=== PATIENT | female | born 1960 | race Hispanic/Latino ===

== ENCOUNTER 2018-07-20 17:34 | Emergency (ER) | payer BC, SELFPAY ==
[2018-07-20] MEDS ORDERED: ACETAMINOPHEN 500 MG TAB ONE (19:26)
[2018-07-20 19:39] LABS: Absolute Lymphocytes (CBC) 0.9 K/uL (0.7-4.9); Absolute Monocytes 0.6 K/uL (0.1-1.3); Basophils % 0.4 % (0-1.3); Hematocrit 45.1 % (36.0-45.0); Lymphocytes % 11.5 % (15.3-44.8); MCV 89.9 fL (80-100); MPV 7.8 fL (7.6-11.3); Monocytes % 7.7 % (3.3-12.3); RBC Red Blood Cell Count 5.02 M/uL (3.86-4.86)
[2018-07-20] MEDS ORDERED: NA CHLORIDE 0.9% 1,000 ML ONE (20:12)
[2018-07-20 20:16] LABS: ALT/SGPT 48 U/L (12-78); AST/SGOT 55 U/L (15-37); Albumin 3.6 g/dL (3.4-5.0); Alkaline Phosphatase 121 U/L (45-117); Amylase Level 18 U/L (25-115); BUN Blood Urea Nitrogen 6 mg/dL (7-18); Bicarbonate 28 mmol/L (21-32); Bilirubin Direct < 0.1 mg/dL (0-0.2); Bilirubin Total 0.4 mg/dL (0.2-1.0); Glucose Level 328 mg/dL (74-106); Lipase 57 U/L (73-393); Potassium 4.2 mmol/L (3.5-5.1); Protein, Total 7.7 g/dL (6.4-8.2); Sodium Level 130 mmol/L (136-145)
--- NOTE | 2018-07-20 21:58 | RAD REPORT ---
EXAM DESCRIPTION: CTAbdomen Pelvis W Contrast - 07/20/2018 9:46 pm CLINICAL HISTORY: Abdominal pain. IV contrast only;Abd pain COMPARISON: Stone Protocol dated 07/02/2016 TECHNIQUE: Biphasic CT imaging of the abdomen and pelvis was performed with 100 ml non-ionic IV cont rast. All CT scans are performed using dose optimization technique as appropriate and may include automated exposure control or mA/KV adjustment according to patient size. FINDINGS: The lung bases are clear. The liver demonstrates diffuse fatty liver. The spleen, pancreas, adrenal glands and kidneys are with in normal limits. No bowel obstruction, free air, free fluid or abscess. A few mildly prominent small bowel loops are s een in the mid abdomen. The appendix is normal. No evidence of significant lymphadenopathy. No suspicious bony findings. IMPRESSION: A few mildly prominent small bowel loops are present in the mid abdomen compatible with a nonspecific enteritis. Fatty liver.
--- NOTE | 2018-07-20 22:32 | ER ---
Nurse's Notes [facility] Name: Samantha Thomas Age: 57 yrs Sex: Female : 1960 Arrival Date: 07/20/2018 Time: 17:37 Bed 20 Private MD: None, None Diagnosis: Nausea with vomiting, unspecified;Generalized abdominal pain;Hyperglycemia, unspecified Presentation: 07/20 17:46 Presenting complaint: Patient states: Holger lower back pain that radiates to abdomen, ph N/V/D, and body aches, reports that symptoms began Saturday. Transition of care: patient was not received from another setting of care. Onset of symptoms was July 20, 2018. Risk Assessment: Do you want to hurt yourself or someone else? Patient reports no desire to harm self or others. Initial Sepsis Screen: Does the patient meet any 2 criteria? No. Patient's initial sepsis screen is negative. Does the patient have a suspected source of infection? No. Patient's initial sepsis screen is negative. Care prior to arrival: None. 17:46 Method Of Arrival: Ambulatory ph 17:46 Acuity: IHSAN 3 ph Historical: - Allergies: 17:47 No Known Allergies; ph - Home Meds: 17:47 glyburide 5 mg Oral tab 2 tabs 2 times per day for Type 2 Diabetes Mellitus [Active]; ph metformin 850 mg Oral tab 1 tab 3 times per day [Active]; - PMHx: 17:47 Diabetes - IDDM; Hyperlipidemia; Hypertension; ph - PSHx: 17:47 ; ph - Immunization history:: Adult Immunizations up to date. - Social history:: Smoking status: Patient/guardian denies using tobacco. - Ebola Screening: : No symptoms or risks identified at this time. Screenin:38 Abuse screen: Denies threats or abuse. Denies injuries from another. Nutritional lp1 screening: No deficits noted. Tuberculosis screening: No symptoms or risk factors identified. 20:26 Fall Risk None identified. lp1 Assessment: 19:36 General: Appears uncomfortable, Behavior is appropriate for age. Pain: Complains of lp1 pain in abdomen Pain radiates to back Pain currently is 7 out of 10 on a pain scale. Quality of pain is described as aching. Neuro: Level of Consciousness is awake, alert, obeys commands, Oriented to person, place, time, situation. Cardiovascular: Patient's skin is warm and dry. Respiratory: Respiratory effort is even, unlabored, Breath sounds are clear bilaterally. GI: Abdomen is non-distended, Bowel sounds present X 4 quads. Abdomen is tender to palpation X 4 quads. Reports vomiting. : Denies burning with urination. EENT: No signs and/or symptoms were reported regarding the EENT system. Derm: Skin is intact, Skin is dry, Skin is normal, Skin temperature is hot. Musculoskeletal: Circulation, motion, and sensation intact. 20:45 Reassessment: Patient appears in no apparent distress at this time. Patient and/or lp1 family updated on plan of care and expected duration. Pain level reassessed. Patient is alert, oriented x 3, equal unlabored respirations, skin warm/dry/pink. Patient aware of waiting for lab results. 21:37 Reassessment: Patient appears in no apparent distress at this time. Patient and/or lp1 family updated on plan of care and expected duration. Pain level reassessed. Patient is alert, oriented x 3, equal unlabored respirations, skin warm/dry/pink. 22:30 Reassessment: Patient is alert, oriented x 3, equal unlabored respirations, skin lp1 warm/dry/pink. Patient tolerating food; Daughter brought whataburger for patient Patient states feeling better. Vital Signs: 17:47 BP 144 / 86; Pulse 107; Resp 20; Temp 100.9(O); Pulse Ox 96% on R/A; ph 20:00 BP 120 / 62; Pulse 88; Resp 18; Pulse Ox 96% on R/A; lp1 20:50 BP 129 / 69; Pulse 81; Resp 18; Temp 99(O); Pulse Ox 98% on R/A; Pain 3/10; lp1 21:37 BP 132 / 67; Pulse 83; Resp 18; Pulse Ox 96% on R/A; lp1 22:30 BP 112 / 61; Pulse 82; Resp 18; Temp 99.2(O); Pulse Ox 99% on R/A; lp1 ED Course: 17:37 Patient arrived in ED. sb2 17:37 None, None is Private Physician. sb2 17:47 Triage completed. ph 17:47 Arm band placed on. ph 19:06 Kristi Rodriguez FNP-C is PHCP. kb 19:06 Dorian Fields MD is Attending Physician. kb 19:07 Maday Laws, RN is Primary Nurse. lp1 19:36 Inserted saline lock: 20 gauge in right antecubital area, using aseptic technique. lp1 Blood collected. 19:38 Patient has correct armband on for positive identification. Placed in gown. Bed in low lp1 position. Call light in reach. Pulse ox on. NIBP on. 21:[address] via wheelchair. lp1 21:45 CT completed. Patient tolerated procedure well. Patient moved back from CT. kw1 21:46 CT Abd/Pelvis - W/Contrast In Process Unspecified. EDMS 22:49 No provider procedures requiring assistance completed. IV discontinued, No lp1 redness/swelling at site. Pressure dressing applied. Administered Medications: 19:20 Drug: Tylenol 1000 mg Route: PO; lp1 20:51 Follow up: Response: Temperature is decreased lp1 20:00 Drug: NS 0.9% 1000 ml Route: IV; Rate: 1000 ml; Site: right antecubital; lp1 21:30 Follow up: IV Status: Completed infusion; IV Intake: 1000ml lp1 Point of Care Testing: Blood Glucose: 22:07 Blood Glucose: 261 mg/dL; lp1 Ranges: Intake: 21:30 IV: 1000ml; Total: 1000ml. lp1 Outcome: 22:31 Discharge ordered by . kb 22:50 Discharged to home ambulatory, with family. lp1 22:50 Condition: good 22:50 Discharge instructions given to patient, family, Instructed on discharge instructions, follow up and referral plans. medication usage, Demonstrated understanding of instructions, follow-up care, medications, Prescriptions given X 2. 22:51 Patient left the ED. lp1 Signatures: Dispatcher [employer] EDMS Kristi Rodriguez, Maday Odom, RN RN lp1 Lawanda Mcpherson, ISH RN Meenakshi Amezcua kw1 Tonja yL sb2
--- NOTE | 2018-07-20 22:32 | EDPHYS ---
Physician Documentation [facility] Name: Samantha Thomas Age: 57 yrs Sex: Female : 1960 Arrival Date: 07/20/2018 Time: 17:37 Bed 20 Private MD: None, None ED Physician Dorian Fields HPI: 07/20 19:44 This 57 yrs old Female presents to ER via Ambulatory with complaints of kb Nausea/Vomiting, BODY ACHES. 19:45 This 57 yrs old Female presents to ER via Ambulatory with complaints of kb Nausea/Vomiting, BODY ACHES. 19:45 The patient presents with abdominal pain that is diffuse. Onset: The symptoms/episode kb began/occurred 2 day(s) ago. The symptoms do not radiate. Associated signs and symptoms: Pertinent positives: nausea, vomiting, and diarrhea, fever. The symptoms are described as constant. Modifying factors: The symptoms are alleviated by nothing, the symptoms are aggravated by nothing. Severity of pain: At its worst the pain was moderate in the emergency department the pain is unchanged. The patient has not experienced similar symptoms in the past. The patient has not recently seen a physician. Historical: - Allergies: 17:47 No Known Allergies; ph - Home Meds: 17:47 glyburide 5 mg Oral tab 2 tabs 2 times per day for Type 2 Diabetes Mellitus [Active]; ph metformin 850 mg Oral tab 1 tab 3 times per day [Active]; - PMHx: 17:47 Diabetes - IDDM; Hyperlipidemia; Hypertension; ph - PSHx: 17:47 ; ph - Immunization history:: Adult Immunizations up to date. - Social history:: Smoking status: Patient/guardian denies using tobacco. - Ebola Screening: : No symptoms or risks identified at this time. ROS: 19:45 Constitutional: Negative for fever, chills, and weight loss, Cardiovascular: Negative kb for chest pain, palpitations, and edema, Respiratory: Negative for shortness of breath, cough, wheezing, and pleuritic chest pain, : Negative for injury, bleeding, discharge, and swelling, MS/Extremity: Negative for injury and deformity, Skin: Negative for injury, rash, and discoloration, Neuro: Negative for headache, weakness, numbness, tingling, and seizure. 19:45 Abdomen/GI: Positive for abdominal pain, nausea, vomiting, and diarrhea. 19:45 Back: Positive for flank pain, bilaterally. Exam: 19:45 Constitutional: This is a well developed, well nourished patient who is awake, alert, kb and in no acute distress. Head/Face: Normocephalic, atraumatic. Chest/axilla: Normal chest wall appearance and motion. Nontender with no deformity. No lesions are appreciated. Cardiovascular: Regular rate and rhythm with a normal S1 and S2. No gallops, murmurs, or rubs. Normal PMI, no JVD. No pulse deficits. Respiratory: Lungs have equal breath sounds bilaterally, clear to auscultation and percussion. No rales, rhonchi or wheezes noted. No increased work of breathing, no retractions or nasal flaring. Skin: Warm, dry with normal turgor. Normal color with no rashes, no lesions, and no evidence of cellulitis. MS/ Extremity: Pulses equal, no cyanosis. Neurovascular intact. Full, normal range of motion. Neuro: Awake and alert, GCS 15, oriented to person, place, time, and situation. Cranial nerves II-XII grossly intact. Motor strength 5/5 in all extremities. Sensory grossly intact. Cerebellar exam normal. Normal gait. 19:45 Abdomen/GI: Inspection: abdomen appears normal, Bowel sounds: normal, in all quadrants, Palpation: soft, in all quadrants, moderate abdominal tenderness, in all quadrants. 19:45 Back: CVA tenderness, that is mild, is noted bilaterally. Vital Signs: 17:47 BP 144 / 86; Pulse 107; Resp 20; Temp 100.9(O); Pulse Ox 96% on R/A; ph 20:00 BP 120 / 62; Pulse 88; Resp 18; Pulse Ox 96% on R/A; lp1 20:50 BP 129 / 69; Pulse 81; Resp 18; Temp 99(O); Pulse Ox 98% on R/A; Pain 3/10; lp1 21:37 BP 132 / 67; Pulse 83; Resp 18; Pulse Ox 96% on R/A; lp1 22:30 BP 112 / 61; Pulse 82; Resp 18; Temp 99.2(O); Pulse Ox 99% on R/A; lp1 MDM: 19:06 Patient medically screened. [facility] 19:47 Data reviewed: vital signs, nurses notes. Data interpreted: Pulse oximetry: on room air kb is 96 %. Interpretation: normal. 22:30 Counseling: I had a detailed discussion with the patient and/or guardian regarding: the kb historical points, exam findings, and any diagnostic results supporting the discharge/admit diagnosis, lab results, radiology results, the need for outpatient follow up, a family practitioner, to return to the emergency department if symptoms worsen or persist or if there are any questions or concerns that arise at home. 07/20 19:12 Order name: Amylase, Serum; Complete Time: 20:23 kb 07/20 19:12 Order name: Basic Metabolic Panel; Complete Time: 20:23 kb 07/20 19:12 Order name: CBC with Diff; Complete Time: 19:44 kb 07/20 19:12 Order name: Hepatic Function; Complete Time: 20:23 kb 07/20 19:12 Order name: Lipase; Complete Time: 20:23 kb 07/20 22:31 Order name: Urine Dipstick--Ancillary (enter results); Complete Time: 22:45 mt 07/20 19:12 Order name: IV Saline Lock; Complete Time: 19:34 kb 07/20 19:12 Order name: Labs collected and sent; Complete Time: 19:34 kb 07/20 19:12 Order name: Urine Dipstick-Ancillary (obtain specimen); Complete Time: 20:25 kb 07/20 20:25 Order name: CT Abd/Pelvis - W/Contrast; Complete Time: 21:58 fc 07/20 21:59 Order name: Blood Glucose Level; Complete Time: 22:08 kb Administered Medications: 19:20 Drug: Tylenol 1000 mg Route: PO; lp1 20:51 Follow up: Response: Temperature is decreased lp1 20:00 Drug: NS 0.9% 1000 ml Route: IV; Rate: 1000 ml; Site: right antecubital; lp1 21:30 Follow up: IV Status: Completed infusion; IV Intake: 1000ml lp1 Point of Care Testing: Blood Glucose: 22:07 Blood Glucose: 261 mg/dL; lp1 Ranges: Critical Glucose Levels:Adult <50 mg/dl or >400 mg/dl <40 mg/dl or >180 mg/dl Disposition: 07/21 06:49 Co-signature as Attending Physician, Dorian iFelds MD I agree with the assessment and omar plan of care. Disposition: 07/20/18 22:31 Discharged to Home. Impression: Nausea with vomiting, unspecified, Generalized abdominal pain, Hyperglycemia, unspecified. - Condition is Stable. - Discharge Instructions: Viral Gastroenteritis, Adult, [id number]. - Prescriptions for Bentyl 20 mg Oral Tablet - take 1 tablet by ORAL route every 6 hours As needed; 20 tablet. Zofran 4 mg Oral Tablet - take 1 tablet by ORAL route every 6 hours As needed; 20 tablet. - Medication Reconciliation Form, Thank You Letter, Antibiotic Education, Prescription Opioid Use form. - Follow up: Emergency Department; When: As needed; Reason: Worsening of condition. Follow up: Private Physician; When: 2 - 3 days; Reason: Recheck today's complaints, Continuance of care, Re-evaluation by your physician. Signatures: Dispatcher [employer] EDMS Kristi Rodriguez, KILN DOOR BUILDER-C KILN DOOR BUILDER-Dorian Rojo MD MD cha Pena, Laura, RN RN lp1 Lawanda Mcpherson RN RN ph Corrections: (The following items were deleted from the chart) 07/20 22:34 22:31 07/20/2018 22:31 Discharged to Home. Impression: Nausea with vomiting, kb unspecified; Generalized abdominal pain. Condition is Stable. Forms are Medication Reconciliation Form, Thank You Letter, Antibiotic Education, Prescription Opioid Use. Follow up: Emergency Department; When: As needed; Reason: Worsening of condition. Follow up: Private Physician; When: 2 - 3 days; Reason: Recheck today's complaints, Continuance of care, Re-evaluation by your physician. kb 22:51 22:34 07/20/2018 22:31 Discharged to Home. Impression: Nausea with vomiting, lp1 unspecified; Generalized abdominal pain; Hyperglycemia, unspecified. Condition is Stable. Discharge Instructions: Viral Gastroenteritis, Adult, [id number]. Prescriptions for Bentyl 20 mg Oral Tablet - take 1 tablet by ORAL route every 6 hours As needed; 20 tablet, Zofran 4 mg Oral Tablet - take 1 tablet by ORAL route every 6 hours As needed; 20 tablet. and Forms are Medication Reconciliation Form, Thank You Letter, Antibiotic Education, Prescription Opioid Use. Follow up: Emergency Department; When: As needed; Reason: Worsening of condition. Follow up: Private Physician; When: 2 - 3 days; Reason: Recheck today's complaints, Continuance of care, Re-evaluation by your physician. kb
[2018-07-20 22:40] LABS: Urine Blood NEGATIVE (NEG); Urine Glucose 2+ (NEG); Urine Protein TRACE (NEG); Urine Specific Gravity 1.015 (1.005-1.030)
== END 2018-07-20 22:51 | disposition home or self-care (01) ==
LOC: ER 17:34
DX: R11.2 Nausea with vomiting, unspecified (principal); R10.84 Generalized abdominal pain; R73.9 Hyperglycemia, unspecified; E11.65 Type 2 diabetes mellitus with hyperglycemia; Z79.4 Long term (current) use of insulin; I10 Essential (primary) hypertension; E78.5 Hyperlipidemia, unspecified
CPT/HCPCS: 36415; 74177; 80048; 80076; 81003; 82150; 82962; 83690; 85025; 96360; 99284; J7030; Q9967

== ENCOUNTER 2019-06-07 22:36 | Emergency (ER) | payer SELFPAY ==
[2019-06-07 23:32] LABS: Absolute Lymphocytes (CBC) 2.9 K/uL (0.7-4.9); Basophils % 0.5 % (0-1.3); Eosinophils % 1.9 % (0-4.4); Lymphocytes % 40.8 % (15.3-44.8); MPV 8.2 fL (7.6-11.3); Monocytes % 7.6 % (3.3-12.3); RBC Red Blood Cell Count 5.15 M/uL (3.86-4.86)
[2019-06-07] MEDS ORDERED: NA CHLORIDE 0.9% 1,000 ML ONE (23:37)
[2019-06-07] MEDS ORDERED: ACETAMINOPHEN 325 MG TABLET ONE (23:38)
[2019-06-07 23:39] LABS: Protime INR 0.91
[2019-06-07 23:55] LABS: ALT/SGPT 28 U/L (12-78); AST/SGOT 14 U/L (15-37); Albumin 4.4 g/dL (3.4-5.0); Alkaline Phosphatase 190 U/L (45-117); BUN Blood Urea Nitrogen 12 mg/dL (7-18); Bicarbonate 27 mmol/L (21-32); Bilirubin Direct 0.1 mg/dL (0-0.2); Bilirubin Total 0.4 mg/dL (0.2-1.0); Magnesium 2.1 mg/dL (1.8-2.4); NT PRO-BNP 29 pg/mL (<125); Potassium 3.9 mmol/L (3.5-5.1); Protein, Total 8.2 g/dL (6.4-8.2); Sodium Level 130 mmol/L (136-145); Troponin (Emerg Dept Use Only) < 0.02 ng/mL (0.0-0.045)
[2019-06-07 23:56] LABS: Glucose Level 565 mg/dL (74-106)
[2019-06-08] MEDS ORDERED: INSULIN -REGULAR HUMAN 50 UNIT/0.5 ML ML ONE ×2 (00:31→02:05)
[2019-06-08 01:12] LABS: Urine Bacteria <20 /HPF (<20); Urine Culture Reflex Order NOT NEEDED; Urine RBC NONE SEEN /HPF (NONE SEEN)
[2019-06-08 01:23] LABS: Urine Blood NEGATIVE (NEG); Urine Glucose 2+ (NEG); Urine Protein NEGATIVE (NEG)
[2019-06-08] MEDS ORDERED: NA CHLORIDE 0.9% 1,000 ML ONE (02:18)
--- NOTE | 2019-06-08 02:51 | EDPHYS ---
Physician Documentation [facility] Name: Samantha Thomas Age: 58 yrs Sex: Female : 1960 Arrival Date: 06/07/2019 Time: 22:40 Bed 2 Private MD: ED Physician Cesar Arguello HPI: 06/07 23:20 This 58 yrs old Female presents to ER via Ambulatory with complaints of High cp Blood Sugar, Headache. 06/08 23:20 The patient or guardian reports generalized weakness, hyperglycemia, headache. cp 23:20 Onset: The symptoms/episode began/occurred today. Associated signs and symptoms: cp Pertinent negatives: diaphoresis, chest pain, abdominal pain. Current symptoms: In the emergency department the patient's symptoms are unchanged from the initial presentation, despite home interventions. Historical: - Allergies: 06/07 22:52 No Known Allergies; la1 - PMHx: 22:52 Diabetes - IDDM; Hyperlipidemia; Hypertension; la1 - Immunization history:: Adult Immunizations up to date. - Social history:: Smoking status: Patient/guardian denies using tobacco. - Ebola Screening: : No symptoms or risks identified at this time. ROS: 23:20 Constitutional: Negative for body aches, chills, fever, poor PO intake. cp 23:20 Eyes: Negative for injury, pain, redness, and discharge. cp 23:20 Cardiovascular: Negative for chest pain, edema, palpitations. cp 23:20 ENT: Negative for drainage from ear(s), ear pain, sore throat, difficulty swallowing, cp difficulty handling secretions. 23:20 Respiratory: Negative for cough, shortness of breath, wheezing. 23:20 Abdomen/GI: Negative for abdominal pain, nausea, vomiting, and diarrhea, constipation, black/tarry stool, rectal bleeding. 23:20 Back: Negative for pain at rest, pain with movement. 23:20 : Negative for urinary symptoms. 23:20 Neuro: Positive for headache, weakness, Negative for altered mental status, dizziness, numbness, tremor. 23:20 All other systems are negative. Exam: 23:40 ECG was reviewed by the Attending Physician. cp 23:43 Constitutional: The patient appears in no acute distress, alert, awake, cp non-diaphoretic, non-toxic, well developed, well nourished. 23:43 Head/Face: Normocephalic, atraumatic. cp 23:43 Eyes: Periorbital structures: appear normal, Pupils: equal, round, and reactive to light and accomodation, Extraocular movements: intact throughout, Conjunctiva: normal, no exudate, no injection, Sclera: no appreciated abnormality, Lids and lashes: appear normal, bilaterally. 23:43 ENT: External ear(s): are unremarkable, Ear canal(s): are normal, clear, TM's: dullness, bilaterally, Nose: is normal, Mouth: Lips: moist, Oral mucosa: pink and intact, moist, Posterior pharynx: is normal, airway is patent, no erythema, no exudate. 23:43 Neck: ROM/movement: is normal, is supple, without pain, no range of motions limitations, no meningismus, no nuchal rigidity. 23:43 Chest/axilla: Inspection: normal, Palpation: is normal, no crepitus, no tenderness. 23:43 Cardiovascular: Rate: normal, Rhythm: regular, Pulses: Pulses are 2+ in right radial artery and left radial artery. Heart sounds: murmur, not appreciated, Edema: is not appreciated, JVD: is not appreciated. 23:43 Respiratory: the patient does not display signs of respiratory distress, Respirations: normal, no use of accessory muscles, no retractions, no splinting, no tachypnea, labored breathing, is not present, Breath sounds: are clear throughout, no decreased breath sounds, no stridor, no wheezing. 23:43 Abdomen/GI: Inspection: abdomen appears normal, Bowel sounds: active, all quadrants, Palpation: abdomen is soft and non-tender, in all quadrants, voluntary guarding, is not appreciated, involuntary guarding, is not appreciated. 23:43 Back: pain, is absent, ROM is normal. 23:43 Skin: no rash present. 23:43 Neuro: Orientation: to person, place \T\ time. Mentation: is normal, Cerebellar function: Romberg testing is negative, normal finger to nose testing, heel to stinson testing is normal, Motor: moves all fours, strength is normal, Sensation: no obvious gross deficits. Vital Signs: 22:52 BP 166 / 70; Pulse 82; Resp 16; Temp 98.0; Pulse Ox 98% on R/A; Weight 63.5 kg; Height la1 5 ft. 0 in. (152.40 cm); 23:38 BP 148 / 79; Pulse 73; Resp 16; Pulse Ox 98% on R/A; Pain 6/10; lp1 06/08 01:00 BP 120 / 71; Pulse 86; Resp 16; Pulse Ox 100% on R/A; lp1 02:15 BP 115 / 71; Pulse 65; Resp 18; Pulse Ox 99% on R/A; lp1 06/07 22:52 Body Mass Index 27.34 (63.50 kg, 152.40 cm) la1 NIH Stroke Scale Scores: 06/07 23:23 NIHSS Score: 0 cp MDM: 23:14 Patient medically screened. cp 06/08 00:00 Differential diagnosis: DKA, hyperglycemia, hyperthyroidism, hypothyroidism, CVA, acute cp AR. 02:48 Data reviewed: vital signs, nurses notes, lab test result(s), EKG, radiologic studies, cp CT scan, and as a result, I will discharge patient. 02:48 Counseling: I had a detailed discussion with the patient and/or guardian regarding: the cp historical points, exam findings, and any diagnostic results supporting the discharge/admit diagnosis, lab results, radiology results, the need for outpatient follow up, for definitive care, a family practitioner, to return to the emergency department if symptoms worsen or persist or if there are any questions or concerns that arise at home. Response to treatment: the patient's symptoms have markedly improved after treatment, VSS. Blood glucose improved. Patient reports feeling better. Will discharge to home for continued monitoring. Patient instructed on need for urgent f/u with family physician. 06/07 23:01 Order name: Glucose, Ancillary Testing; Complete Time: 23:04 EDMS 06/07 23:16 Order name: Basic Metabolic Panel cp 06/07 23:16 Order name: CBC with Diff cp 06/07 23:16 Order name: LFT's cp 06/07 23:16 Order name: Magnesium cp 06/07 23:16 Order name: NT PRO-BNP; Complete Time: 00:55 cp 06/07 23:16 Order name: PT-INR; Complete Time: 23:51 cp 06/07 23:16 Order name: Troponin (emerg Dept Use Only); Complete Time: 00:55 cp 06/07 23:16 Order name: Ketone, Serum; Complete Time: 00:55 cp 06/07 23:16 Order name: Urine Microscopic Only; Complete Time: 01:50 cp 06/07 23:17 Order name: Basic Metabolic Panel; Complete Time: 00:55 EDMS 06/08 00:55 Interpretation: NA 130; CL 93; GLUC 565; GFR 68. cp 06/07 23:17 Order name: CBC with Automated Diff; Complete Time: 23:51 EDMS 06/08 01:51 Interpretation: Normal except: RBC 5.15; HGB 15.7; HCT 46.0. cp 06/07 23:17 Order name: Liver (Hepatic) Function; Complete Time: 00:55 EDMS 06/07 23:17 Order name: Magnesium; Complete Time: 00:55 EDMS 06/07 23:16 Order name: EKG; Complete Time: 23:18 cp 06/07 23:16 Order name: Cardiac monitoring; Complete Time: 23:38 cp 06/07 23:16 Order name: EKG - Nurse/Tech; Complete Time: 23:37 cp 06/07 23:16 Order name: IV Saline Lock; Complete Time: 23:17 cp 06/07 23:16 Order name: Labs collected and sent; Complete Time: 23:17 cp 06/07 23:16 Order name: O2 Per Protocol; Complete Time: 23:18 cp 06/07 23:16 Order name: O2 Sat Monitoring; Complete Time: 23:19 cp 06/07 23:16 Order name: Urine Dipstick-Ancillary (obtain specimen); Complete Time: 01:00 cp 06/07 23:52 Order name: CT Head Brain wo Cont 06/08 00:59 Order name: Urine Dipstick--Ancillary (enter results); Complete Time: 01:50 ga 06/08 01:50 Interpretation: Abnormal: UGLUC 2+. cp EC/14 23:40 Rate is 76 beats/min. Rhythm is regular. AR interval is normal. QRS interval is normal. cp QT interval is prolonged at 438 msec. Interpreted by me. Reviewed by me. Administered Medications: 23:26 Drug: Tylenol 650 mg Route: PO; 1 06/08 01:00 Follow up: Response: No adverse reaction [facility] 06/07 23:26 Drug: NS 0.9% 1000 ml Route: IV; Rate: 1 bolus; Site: left antecubital; lp1 06/08 01:14 Follow up: IV Status: Completed infusion; IV Intake: 1000ml lp1 00:20 Drug: Insulin Regular Human 10 units {Co-Signature: lp1 (Maday Laws RN).} Route: IVP; jd3 Site: left antecubital; 01:13 Follow up: Response: Blood sugar is lowered lp1 01:52 Drug: Insulin Regular Human 10 units {Co-Signature: jd3 (Pedro Womack RN).} Route: lp1 IVP; Site: left antecubital; 02:35 Follow up: Response: Blood sugar is lowered lp1 02:05 Drug: NS 0.9% 1000 ml Route: IV; Rate: 1 bolus; Site: left antecubital; lp1 02:58 Follow up: IV Status: Completed infusion; IV Intake: 1000ml lp1 Point of Care Testing: Blood Glucose: 06/07 23:00 Blood Glucose: High (>450 mg/dL); oe 06/08 01:13 Blood Glucose: 302 mg/dL; lp1 02:34 Blood Glucose: 214 mg/dL; lp1 Ranges: Critical Glucose Levels:Adult <50 mg/dl or >400 mg/dl <40 mg/dl or >180 mg/dl Disposition: 06:17 Co-signature as Attending Physician, Cesar Arguello MD Available for consultation at ps1 all times. . Disposition: 06/08/19 02:50 Discharged to Home. Impression: Diabetes mellitus due to underlying condition with hyperglycemia, Headache. - Condition is Stable. - Discharge Instructions: Type 2 Diabetes Mellitus, Diagnosis, Adult, Blood Glucose Monitoring, Adult, Diabetes Mellitus and Food. - Prescriptions for Metformin 1,000 mg Oral Tablet - take 1 tablet by ORAL route every 12 hours with morning and evening meals; 60 tablet. - Medication Reconciliation Form, Thank You Letter, Antibiotic Education, Prescription Opioid Use form. - Follow up: Private Physician; When: Today; Reason: Recheck today's complaints. - Problem is new. - Symptoms have improved. NIH Stroke Scale - NIH Stroke Score Date: 06/07/2019 Time: 23:23 Total Score = 0 1a. Level of Consciousness (LOC) - 0(Alert) 1b. Level of Consciousness (LOC) (Year \T\ Age) - 0(Both) 1c. LOC Commands (Open \T\ Closes Eyes/Gas Charger) - 0(Both) 2. Best Gaze (Lateral Gaze Paresis) - 0(Normal) 3. Visual Field Loss - 0(No visual loss) 4. Facial Palsy - 0(Normal) 5a. Left Arm: Motor (10-second hold) - 0(No drift) 5b. Right Arm: Motor (10-second hold) - 0(No drift) 6a. Left Leg: Motor (5-second hold - always test supine) - 0(No drift) 6b. Right Leg: Motor (5-second hold - always test supine) - 0(No drift) 7. Limb Ataxia (finger/nose \T\ heel/stinson - test with eyes open) - 0(Absent) 8. Sensory Loss (pinprick arms/legs/face) - 0(Normal) 9. Best Language: Aphasia (description/naming/reading) - 0(No aphasia) 10. Dysarthria (speech clarity - read or repeat words) - 0(Normal) 11. Extinction and Inattention (visual/tactile/auditory/spatial/personal) - 0(No abnormality) Initials: cp Signatures: Dispatcher [employer] EDMS Maday Laws RN RN lp1 Uday Lindo RN RN la1 Dorian Anderson PA PA cp Pedro Womack RN RN jd3 Cesar Arguello MD MD ps1 Maday Laws RN lp1 Pedro Womack RN jd3 Corrections: (The following items were deleted from the chart) 02:59 02:50 06/08/2019 02:50 Discharged to Home. Impression: Diabetes mellitus due to lp1 underlying condition with hyperglycemia; Headache. Condition is Stable. Forms are Medication Reconciliation Form, Thank You Letter, Antibiotic Education, Prescription Opioid Use. Follow up: Private Physician; When: Today; Reason: Recheck today's complaints. Problem is new. Symptoms have improved. cp
--- NOTE | 2019-06-08 02:51 | ER ---
Nurse's Notes [facility] Name: Samantha Thomas Age: 58 yrs Sex: Female : 1960 Arrival Date: 06/07/2019 Time: 22:40 Bed 2 Private MD: Diagnosis: Diabetes mellitus due to underlying condition with hyperglycemia;Headache Presentation: 06/07 22:51 Presenting complaint: Patient states: My BGL is really high at home like in the 580s. I la1 have a bad headache, denies abd pain, nausea, vomiting. Transition of care: patient was not received from another setting of care. Onset of symptoms was June 07, 2019. Risk Assessment: Do you want to hurt yourself or someone else? Patient reports no desire to harm self or others. Initial Sepsis Screen: Does the patient meet any 2 criteria? No. Patient's initial sepsis screen is negative. Does the patient have a suspected source of infection? No. Patient's initial sepsis screen is negative. Care prior to arrival: None. 22:51 Method Of Arrival: Ambulatory la1 22:51 Acuity: IHSAN 2 la1 Triage Assessment: 23:40 Headache History: The patient has had previous headaches. lp1 Historical: - Allergies: 22:52 No Known Allergies; la1 - PMHx: 22:52 Diabetes - IDDM; Hyperlipidemia; Hypertension; la1 - Immunization history:: Adult Immunizations up to date. - Social history:: Smoking status: Patient/guardian denies using tobacco. - Ebola Screening: : No symptoms or risks identified at this time. Screenin:01 Abuse screen: Denies threats or abuse. Denies injuries from another. Nutritional lp1 screening: No deficits noted. Tuberculosis screening: No symptoms or risk factors identified. 23:40 Fall Risk None identified. lp1 Assessment: 23:15 General: Appears in no apparent distress. Behavior is calm, cooperative, appropriate lp1 for age, Reports high blood sugars for the past couple months, but became concerned when blood sugar was getting close to 600. Pain: Complains of pain in head Pain currently is 6 out of 10 on a pain scale. Pain began gradually, Also complains of inability to concentrate. Neuro: Level of Consciousness is awake, alert, obeys commands, Oriented to person, place, time, situation, Financial Data Analyst are equal bilaterally Moves all extremities. Full function Gait is steady, Speech is normal, Facial symmetry appears normal, Intact Reports headache in entire generalized weakness. Cardiovascular: Patient's skin is warm and dry. Rhythm is sinus rhythm. Respiratory: Respiratory effort is even, unlabored. GI: No signs and/or symptoms were reported involving the gastrointestinal system. : No signs and/or symptoms were reported regarding the genitourinary system. EENT: No signs and/or symptoms were reported regarding the EENT system. Derm: Skin is pink, warm \T\ dry. Musculoskeletal: Circulation, motion, and sensation intact. 06/08 00:40 Reassessment: Patient returned from CT. lp1 01:45 Reassessment: Patient is alert, oriented x 3, equal unlabored respirations, skin lp1 warm/dry/pink. Patient states headache completely gone at this time Patient denies pain at this time. Patient states feeling better. Patient states symptoms have improved. 02:35 Reassessment: Patient appears in no apparent distress at this time. No changes from lp1 previously documented assessment. Vital Signs: 06/07 22:52 BP 166 / 70; Pulse 82; Resp 16; Temp 98.0; Pulse Ox 98% on R/A; Weight 63.5 kg; Height la1 5 ft. 0 in. (152.40 cm); 23:38 BP 148 / 79; Pulse 73; Resp 16; Pulse Ox 98% on R/A; Pain 6/10; lp1 06/08 01:00 BP 120 / 71; Pulse 86; Resp 16; Pulse Ox 100% on R/A; lp1 02:15 BP 115 / 71; Pulse 65; Resp 18; Pulse Ox 99% on R/A; lp1 06/07 22:52 Body Mass Index 27.34 (63.50 kg, 152.40 cm) la1 NIH Stroke Scale Scores: 06/07 23:23 NIHSS Score: 0 cp ED Course: 22:40 Patient arrived in ED. mr 22:52 Triage completed. la1 22:53 Arm band placed on left wrist. la1 23:00 Maday Laws, [facility] is Primary Nurse. lp1 23:04 Dorian Anderson PA is PHCP. cp 23:04 Cesar Arguello MD is Attending Physician. cp 23:11 Inserted saline lock: 20 gauge in left antecubital area, using aseptic technique. Blood oe collected. 23:40 Patient has correct armband on for positive identification. Placed in gown. Bed in low lp1 position. Call light in reach. hall monitor on. Pulse ox on. NIBP on. 06/08 00:37 CT Head Brain wo Cont In Process Unspecified. EDMS 01:00 Urine Microscopic Only Sent. oe 01:13 No provider procedures requiring assistance completed. lp1 02:58 IV discontinued, No redness/swelling at site. Pressure dressing applied. lp1 Administered Medications: 06/07 23:26 Drug: Tylenol 650 mg Route: PO; lp1 06/08 01:00 Follow up: Response: No adverse reaction lp1 06/07 23:26 Drug: NS 0.9% 1000 ml Route: IV; Rate: 1 bolus; Site: left antecubital; lp1 06/08 01:14 Follow up: IV Status: Completed infusion; IV Intake: 1000ml lp1 00:20 Drug: Insulin Regular Human 10 units {Co-Signature: lp1 (Maday Laws RN).} Route: IVP; jd3 Site: left antecubital; 01:13 Follow up: Response: Blood sugar is lowered lp1 01:52 Drug: Insulin Regular Human 10 units {Co-Signature: jd3 (Pedro Womack RN).} Route: lp1 IVP; Site: left antecubital; 02:35 Follow up: Response: Blood sugar is lowered lp1 02:05 Drug: NS 0.9% 1000 ml Route: IV; Rate: 1 bolus; Site: left antecubital; lp1 02:58 Follow up: IV Status: Completed infusion; IV Intake: 1000ml lp1 Point of Care Testing: Blood Glucose: 06/07 23:00 Blood Glucose: High (>450 mg/dL); oe 06/08 01:13 Blood Glucose: 302 mg/dL; lp1 02:34 Blood Glucose: 214 mg/dL; lp1 Ranges: Intake: 01:14 IV: 1000ml; Total: 1000ml. lp1 02:58 IV: 1000ml; Total: 2000ml. lp1 Outcome: 02:50 Discharge ordered by MD. cp 02:59 Discharged to home ambulatory, with family. lp1 02:59 Condition: good 02:59 Discharge instructions given to patient, family, Instructed on discharge instructions, follow up and referral plans. medication usage, Demonstrated understanding of instructions, follow-up care, medications, Prescriptions given X 1. 02:59 Patient left the ED. lp1 NIH Stroke Scale - NIH Stroke Score Date: 06/07/2019 Time: 23:23 Total Score = 0 1a. Level of Consciousness (LOC) - 0(Alert) 1b. Level of Consciousness (LOC) (Year \T\ Age) - 0(Both) 1c. LOC Commands (Open \T\ Closes Eyes/Ground Support Equipment Fitter) - 0(Both) 2. Best Gaze (Lateral Gaze Paresis) - 0(Normal) 3. Visual Field Loss - 0(No visual loss) 4. Facial Palsy - 0(Normal) 5a. Left Arm: Motor (10-second hold) - 0(No drift) 5b. Right Arm: Motor (10-second hold) - 0(No drift) 6a. Left Leg: Motor (5-second hold - always test supine) - 0(No drift) 6b. Right Leg: Motor (5-second hold - always test supine) - 0(No drift) 7. Limb Ataxia (finger/nose \T\ heel/stinson - test with eyes open) - 0(Absent) 8. Sensory Loss (pinprick arms/legs/face) - 0(Normal) 9. Best Language: Aphasia (description/naming/reading) - 0(No aphasia) 10. Dysarthria (speech clarity - read or repeat words) - 0(Normal) 11. Extinction and Inattention (visual/tactile/auditory/spatial/personal) - 0(No abnormality) Initials: cp Signatures: Dispatcher [employer] EDNV Tram Bowers mr Maday Laws RN RN lp1 Uday Lindo RN RN la1 Dorian Anderson PA PA cp Dae Sanchez Jonathon, RN RN jd3 Maday Laws RN lp1 Pedro Womack RN jd3 Corrections: (The following items were deleted from the chart) :06/07 23:15 Pain: Complains of pain in head Pain currently is 6 out of 10 on a lp1 pain scale. lp1 06/08 01:08 06/07 23:15 Neuro: Level of Consciousness is awake, alert, obeys commands, lp1 Oriented to person, place, time, situation, Financial Data Analyst are equal bilaterally Moves all extremities. Full function Gait is steady, Speech is normal, Facial symmetry appears normal, Intact Reports headache in entire generalized weakness. lp1 06/08 02:39 06/07 23:15 Pain: Complains of pain in head Pain currently is 6 out of 10 on a lp1 pain scale. Also complains of inability to concentrate, lp1
--- NOTE | 2019-06-08 10:53 | EKG ---
Test Date: 2019-06-07 Test Time: 23:34:18 Crew Supervisor: ACOSTA MEASUREMENT RESULTS: Intervals: Rate: 76 DC: 118 QRSD: 84 QT: 438 QTc: 492 [place]: P: 17 DC: 118 QRS: 68 T: 59 INTERPRETIVE STATEMENTS: Normal sinus rhythm Prolonged QT Abnormal ECG Compared to ECG 02/24/2017 15:51:24 Prolonged QT interval now present T-wave abnormality no longer present Electronically Signed On 06-08-19 10:52:23 CDT by Cornelio Brown
--- NOTE | 2019-06-08 11:06 | RAD REPORT ---
EXAM DESCRIPTION: Head Brain Wo Cont CLINICAL HISTORY: 58 years Female HEADACHE TECHNIQUE: Contiguous axial CT images obtained through the brain without IV contrast. Coronal and sa gittal reformats also provided. This CT exam was performed according to our departmental dose-optimization program, which includes on e or more of the following dose reduction techniques: automated exposure control, adjustment of the m A and/or kV according to patient size, and/or use of iterative reconstruction technique. COMPARISON: Comparison is made to the prior examination dated 02/24/2017. FINDINGS: There is no intracranial hemorrhage, extraaxial collection, or acute transcortical infarct ion. The ventricles are normal in size and contour without mass-effect or midline shift. Osseous structure s are normal. The paranasal sinuses and mastoid air cells are clear. IMPRESSION: No acute intracranial abnormalities. Electronically signed by: Lina Garcia MD 06/08/2019 12:43 AM CDT Due to temporary technical issues with the PACS/Fluency reporting system, reports are being signed by the in house radiologist as a courtesy to ensure prompt reporting. The interpreting radiologist is f ully responsible for the content of the report.
== END 2019-06-08 02:59 | disposition home or self-care (01) ==
LOC: ER 22:36
DX: E11.65 Type 2 diabetes mellitus with hyperglycemia (principal); I10 Essential (primary) hypertension
CPT/HCPCS: 36415; 70450; 80048; 80076; 81003; 81015; 82010; 82962; 83735; 83880; 84484; 85025; 85610; 93005; 96361; 96374; 99284; J7030

== ENCOUNTER 2022-08-03 13:37 | Emergency (ER) | payer SELFPAY ==
--- OUTSIDE RECORDS SUMMARY | 2022-08-03 14:03 | XMS REPORT | Continuity of Care Document ---
:1960 Author Organization [facility] t Address [address] [place] [address] Dr. Del Angel [address] [place] [id number] Care Team Providers Name Role Phone Karen Thomson Primary Care Physician [phone] Problems This patient has no known problems. Allergies, Adverse Reactions, Alerts This patient has no known allergies or adverse reactions. Medications Ordered Filled Start Stop Current Ordering Indication Dosage Frequency Signature Comments Components Source Medication Medication Date Date Medication? Clinician (SIG) Name Name Levemir 0 No (3 mL) FlexTouch 7-16 U-100 00:00: Insulin 100 00 unit/mL (3 mL) subcutaneou s pen Novolin R 2021-0 No 10(3 Flexpen 100 7-16 mL) unit/mL (3 00:00: mL) 00 subcutaneou s insulin pen Januvia 100 2021-0 No 1mg mg tablet 7-16 00:00: 00 metformin 2021-0 No 1mg 850 mg 7-16 tablet 00:00: 00 pravastatin 2021-0 No 1mg 80 mg 7-16 tablet 00:00: 00 ramipril 10 2021-0 No 1mg mg capsule 7-16 00:00: 00 Dose 2021-0 No Unknown 5-09 00:00: 00 Dose 2-0 No Unknown 5-09 00:00: 00 Dose 2-0 No Unknown 5-09 00:00: 00 Dose 2-0 No Unknown 5-09 00:00: 00 Dose 2021-0 No Unknown 5-09 00:00: 00 Dose 2-0 No Unknown 5-09 00:00: 00 Dose 2-0 No Unknown 3-30 00:00: 00 Dose 2021-0 No Unknown 3-30 00:00: 00 Januvia 100 2022-0 No 1mg mg tablet 3-29 00:00: 00 Dose 2022-0 No Unknown 3-29 00:00: 00 Dose 2022-0 No Unknown 3-29 00:00: 00 Dose 2022-0 No Unknown 3-29 00:00: 00 Januvia 100 2022-0 No 1mg mg tablet 3-29 00:00: 00 Dose 2022-0 No Unknown 3-29 00:00: 00 Dose 2022-0 No Unknown 3-29 00:00: 00 Dose 2022-0 No Unknown 3-29 00:00: 00 Dose 2022-0 No Unknown 3-17 00:00: 00 Dose 2022-0 No Unknown 3-17 00:00: 00 Dose 2022-0 No Unknown 3-17 00:00: 00 Dose 2022-0 No Unknown 3-17 00:00: 00 Dose 2022-0 No Unknown 3-17 00:00: 00 Dose 2022-0 No Unknown 3-17 00:00: 00 Dose 2022-0 No Unknown 3-17 00:00: 00 Dose 2022-0 No Unknown 3-17 00:00: 00 Dose 2022-0 No Unknown 3-17 00:00: 00 Dose 2022-0 No Unknown 3-17 00:00: 00 Dose 2022-0 No Unknown 3-17 00:00: 00 Dose 2022-0 No Unknown 3-17 00:00: 00 Dose 2022-0 No Unknown 3-17 00:00: 00 Dose 2022-0 No Unknown 3-17 00:00: 00 Dose 2022-0 No Unknown 3-17 00:00: 00 Dose 2022-0 No Unknown 3-17 00:00: 00 Dose 2022-0 No Unknown 3-17 00:00: 00 Dose 2022-0 No Unknown 3-17 00:00: 00 Dose 2022-0 No Unknown 3-17 00:00: 00 Dose 2022-0 No Unknown 3-17 00:00: 00 Dose 2022-0 No Unknown 3-17 00:00: 00 Dose 2022-0 No Unknown 3-17 00:00: 00 Dose 2022-0 No Unknown 3-17 00:00: 00 Dose 2022-0 No Unknown 3-17 00:00: 00 Dose 2022-0 No Unknown 3-17 00:00: 00 Dose 2022-0 No Unknown 3-17 00:00: 00 Dose 2022-0 No Unknown 3-17 00:00: 00 Dose 2022-0 No Unknown 3-17 00:00: 00 Dose 2022-0 No Unknown 3-17 00:00: 00 Dose 2022-0 No Unknown 3-17 00:00: 00 Dose 2022-0 No Unknown 3-17 00:00: 00 Dose 2022-0 No Unknown 3-17 00:00: 00 Dose 2022-0 No Unknown 3-17 00:00: 00 Dose 2022-0 No Unknown 3-17 00:00: 00 Dose 2022-0 No Unknown 3-17 00:00: 00 Dose 2022-0 No Unknown 3-17 00:00: 00 Dose 2022-0 No Unknown 3-17 00:00: 00 Dose 2022-0 No Unknown 3-17 00:00: 00 Dose 2022-0 No Unknown 3-17 00:00: 00 Dose 2022-0 No Unknown 3-17 00:00: 00 Dose 2022-0 No Unknown 3-17 00:00: 00 Dose 2022-0 No Unknown 3-17 00:00: 00 Dose 2022-0 No Unknown 3-17 00:00: 00 Dose 2022-0 No Unknown 3-17 00:00: 00 Dose 2022-0 No Unknown 3-17 00:00: 00 Dose 2022-0 No Unknown 3-17 00:00: 00 Dose 2022-0 No Unknown 3-17 00:00: 00 Dose 2022-0 No Unknown 3-17 00:00: 00 Dose 2022-0 No Unknown 3-17 00:00: 00 Dose 2022-0 No Unknown 3-17 00:00: 00 Dose 2022-0 No Unknown 3-17 00:00: 00 Dose 2022-0 No Unknown 3-17 00:00: 00 Dose 2022-0 No Unknown 3-17 00:00: 00 Dose 2022-0 No Unknown 3-17 00:00: 00 Dose 2022-0 No Unknown 3-17 00:00: 00 Dose 2022-0 No Unknown 3-17 00:00: 00 Dose 2022-0 No Unknown 3-17 00:00: 00 Dose 2022-0 No Unknown 3-17 00:00: 00 Dose 2022-0 No Unknown 3-17 00:00: 00 Dose 2-0 No Unknown 3-17 00:00: 00 Levemir 2-0 No (3 mL) FlexTouch 3-17 U-100 00:00: Insulin 100 00 unit/mL (3 mL) subcutaneou s pen Novolin R 2021-0 No 10(3 Flexpen 100 3-17 mL) unit/mL (3 00:00: mL) 00 subcutaneou s insulin pen Dose 2021-0 No Unknown 3-17 00:00: 00 Dose 2-0 No Unknown 3-17 00:00: 00 metformin 2-0 No 1mg 850 mg 3-17 tablet 00:00: 00 pravastatin 2-0 No 1mg 40 mg 3-17 tablet 00:00: 00 ramipril 10 2021-0 No 1mg mg capsule 3-17 00:00: 00 Dose 2-0 No Unknown 3-17 00:00: 00 Dose 2-0 No Unknown 3-17 00:00: 00 Dose 2-0 No Unknown 3-17 00:00: 00 Dose 2-0 No Unknown 3-17 00:00: 00 Dose 2-0 No Unknown 3-17 00:00: 00 Dose 2-0 No Unknown 3-17 00:00: 00 Dose 2-0 No Unknown 3-17 00:00: 00 Dose 2-0 No Unknown 3-17 00:00: 00 Dose 2022-0 No Unknown 3-17 00:00: 00 Dose 2-0 No Unknown 3-17 00:00: 00 Dose 2022-0 No Unknown 3-17 00:00: 00 Dose 2022-0 No Unknown 3-17 00:00: 00 Dose 2-0 No Unknown 3-17 00:00: 00 Dose 2-0 No Unknown 3-17 00:00: 00 Dose 2-0 No Unknown 3-17 00:00: 00 Dose 2-0 No Unknown 3-17 00:00: 00 Dose 2-0 No Unknown 3-17 00:00: 00 Dose 2022-0 No Unknown 3-17 00:00: 00 Dose 2-0 No Unknown 3-17 00:00: 00 Dose 2022-0 No Unknown 3-17 00:00: 00 Dose 2022-0 No Unknown 3-17 00:00: 00 Dose 2022-0 No Unknown 3-17 00:00: 00 Dose 2022-0 No Unknown 3-17 00:00: 00 Dose 2022-0 No Unknown 3-17 00:00: 00 Dose 2022-0 No Unknown 3-17 00:00: 00 Dose 2022-0 No Unknown 3-17 00:00: 00 Dose 2022-0 No Unknown 3-17 00:00: 00 Dose 2022-0 No Unknown 3-17 00:00: 00 Dose 2022-0 No Unknown 3-17 00:00: 00 Dose 2022-0 No Unknown 3-17 00:00: 00 Dose 2022-0 No Unknown 3-17 00:00: 00 Dose 2022-0 No Unknown 3-17 00:00: 00 Dose 2022-0 No Unknown 3-17 00:00: 00 Dose 2022-0 No Unknown 3-17 00:00: 00 Dose 2022-0 No Unknown 3-17 00:00: 00 Dose 2022-0 No Unknown 3-17 00:00: 00 Dose 2022-0 No Unknown 3-17 00:00: 00 Dose 2022-0 No Unknown 3-17 00:00: 00 Dose 2022-0 No Unknown 3-17 00:00: 00 Dose 2022-0 No Unknown 3-17 00:00: 00 Dose 2022-0 No Unknown 3-17 00:00: 00 Dose 2022-0 No Unknown 3-17 00:00: 00 Dose 2022-0 No Unknown 3-17 00:00: 00 Dose 2022-0 No Unknown 3-17 00:00: 00 Dose 2022-0 No Unknown 3-17 00:00: 00 Dose 2022-0 No Unknown 3-17 00:00: 00 Dose 2022-0 No Unknown 3-17 00:00: 00 Dose 2022-0 No Unknown 3-17 00:00: 00 Dose 2022-0 No Unknown 3-17 00:00: 00 Dose 2022-0 No Unknown 3-17 00:00: 00 Dose 2022-0 No Unknown 3-17 00:00: 00 Dose 2022-0 No Unknown 3-17 00:00: 00 Dose 2022-0 No Unknown 3-17 00:00: 00 Dose 2022-0 No Unknown 3-17 00:00: 00 Dose 2022-0 No Unknown 3-17 00:00: 00 Dose 2-0 No Unknown 3-17 00:00: 00 Dose 2-0 No Unknown 3-17 00:00: 00 Dose 2022-0 No Unknown 3-17 00:00: 00 Dose 2-0 No Unknown 3-17 00:00: 00 Dose 2-0 No Unknown 3-17 00:00: 00 Dose 2-0 No Unknown 3-17 00:00: 00 Dose 2-0 No Unknown 3-17 00:00: 00 Dose 2-0 No Unknown 3-17 00:00: 00 Dose 2-0 No Unknown 3-17 00:00: 00 Dose 2-0 No Unknown 3-17 00:00: 00 Dose 2-0 No Unknown 3-17 00:00: 00 Dose 2-0 No Unknown 3-17 00:00: 00 Dose 2-0 No Unknown 3-17 00:00: 00 Dose 2-0 No Unknown 3-17 00:00: 00 Dose 2-0 No Unknown 3-17 00:00: 00 Dose 2-0 No Unknown 3-17 00:00: 00 Dose 2-0 No Unknown 3-17 00:00: 00 Dose 2-0 No Unknown 3-17 00:00: 00 Dose 2-0 No Unknown 3-17 00:00: 00 Dose 2-0 No Unknown 3-17 00:00: 00 Dose 2-0 No Unknown 3-17 00:00: 00 Dose 2-0 No Unknown 3-17 00:00: 00 Dose 2-0 No Unknown 3-17 00:00: 00 Levemir 2-0 No (3 mL) FlexTouch 3-17 U-100 00:00: Insulin 100 00 unit/mL (3 mL) subcutaneou s pen Novolin R 2021-0 No 10(3 Flexpen 100 3-17 mL) unit/mL (3 00:00: mL) 00 subcutaneou s insulin pen Dose 2021-0 No Unknown 3-17 00:00: 00 Dose 2-0 No Unknown 3-17 00:00: 00 metformin 2-0 No 1mg 850 mg 3-17 tablet 00:00: 00 pravastatin 2022-0 No 1mg 40 mg 3-17 tablet 00:00: 00 ramipril 10 2-0 No 1mg mg capsule 3-17 00:00: 00 Dose 2022-0 No Unknown 3-17 00:00: 00 Dose 2022-0 No Unknown 3-17 00:00: 00 Dose 2022-0 No Unknown 3-17 00:00: 00 Dose 2022-0 No Unknown 3-17 00:00: 00 Dose 2022-0 No Unknown 3-17 00:00: 00 Dose 2022-0 No Unknown 3-17 00:00: 00 Dose 2022-0 No Unknown 3-17 00:00: 00 Dose 2022-0 No Unknown 3-17 00:00: 00 Dose 2022-0 No Unknown 3-17 00:00: 00 Dose 2022-0 No Unknown 3-17 00:00: 00 Dose 2022-0 No Unknown 3-17 00:00: 00 Dose 2022-0 No Unknown 3-17 00:00: 00 Dose 2022-0 No Unknown 3-17 00:00: 00 Dose 2022-0 No Unknown 3-17 00:00: 00 Dose 2022-0 No Unknown 3-17 00:00: 00 Dose 2022-0 No Unknown 3-17 00:00: 00 Dose 2022-0 No Unknown 3-17 00:00: 00 Dose 2022-0 No Unknown 3-17 00:00: 00 Dose 2022-0 No Unknown 3-15 00:00: 00 Dose 2022-0 No Unknown 3-15 00:00: 00 Dose 2022-0 No Unknown 3-15 00:00: 00 Dose 2022-0 No Unknown 3-15 00:00: 00 Dose 2022-0 No Unknown 3-15 00:00: 00 Dose 2022-0 No Unknown 3-15 00:00: 00 Dose 2022-0 No Unknown 3-15 00:00: 00 Dose 2022-0 No Unknown 3-15 00:00: 00 Dose 2022-0 No Unknown 3-15 00:00: 00 Dose 2022-0 No Unknown 3-15 00:00: 00 Dose 2022-0 No Unknown 3-15 00:00: 00 Dose 2022-0 No Unknown 3-15 00:00: 00 Dose 2022-0 No Unknown 3-15 00:00: 00 Dose 2022-0 No Unknown 3-15 00:00: 00 Dose 2022-0 No Unknown 3-15 00:00: 00 Dose 2022-0 No Unknown 3-15 00:00: 00 Dose 2022-0 No Unknown 3-15 00:00: 00 Dose 2022-0 No Unknown 3-15 00:00: 00 Dose 2022-0 No Unknown 3-15 00:00: 00 Dose 2022-0 No Unknown 3-15 00:00: 00 Dose 2022-0 No Unknown 3-15 00:00: 00 Dose 2022-0 No Unknown 3-15 00:00: 00 Dose 2022-0 No Unknown 3-15 00:00: 00 Dose 2022-0 No Unknown 3-15 00:00: 00 Dose 2022-0 No Unknown 3-15 00:00: 00 Dose 2022-0 No Unknown 3-15 00:00: 00 pravastatin 1-0 No 1mg 40 mg 9-29 tablet 00:00: 00 ramipril 5 1-0 No 1mg mg capsule 08-23 00:00: 00 pravastatin 2021-0 No 1mg 40 mg 9-29 tablet 00:00: 00 ramipril 5 1-0 No 1mg mg capsule 08-23 00:00: 00 Dose 1-0 No Unknown 08-22 00:00: 00 Dose 1-0 No Unknown 08-22 00:00: 00 Dose 1-0 No Unknown 08-22 00:00: 00 Dose 1-0 No Unknown 08-22 00:00: 00 metformin 1-0 No 1mg 850 mg 9-23 tablet 00:00: 00 metformin 1-0 No 1mg 850 mg 9-23 tablet 00:00: 00 Levemir 1-0 No (3 mL) FlexTouch 6-09 U-100 00:00: Insulin 100 00 unit/mL (3 mL) subcutaneou s pen Novolin R 2020-0 No 10(3 Flexpen 100 6-09 mL) unit/mL (3 00:00: mL) 00 subcutaneou s insulin pen hydroxyzine 2020-0 No 1mg HCl 25 mg 6-09 tablet 00:00: 00 metformin 1-0 No 2mg 850 mg 6-09 tablet 00:00: 00 pravastatin 2021-0 No 1mg 40 mg 6-09 tablet 00:00: 00 ramipril 5 1-0 No 1mg mg capsule 6 00:00: 00 Levemir 2021-0 No (3 mL) FlexTouch 6-09 U-100 00:00: Insulin 100 00 unit/mL (3 mL) subcutaneou s pen Novolin R 1-0 No 10(3 Flexpen 100 6-09 mL) unit/mL (3 00:00: mL) 00 subcutaneou s insulin pen hydroxyzine 1-0 No 1mg HCl 25 mg 6-09 tablet 00:00: 00 metformin 1-0 No 2mg 850 mg 6-09 tablet 00:00: 00 pravastatin 1-0 No 1mg 40 mg 6-09 tablet 00:00: 00 ramipril 5 1-0 No 1mg mg capsule 05-03 00:00: 00 Levemir 2021-0 No 10(3 FlexTouch 3-16 mL) U-100 00:00: Insulin 100 00 unit/mL (3 mL) subcutaneou s pen Novolin R 1-0 No unit/mL Regular 3-16 U-100 00:00: Insulin 100 00 unit/mL injection solution metformin 1-0 No 1mg 850 mg 3-16 tablet 00:00: 00 pravastatin 1-0 No 1mg 40 mg 3-16 tablet 00:00: 00 hydroxyzine 1-0 No 1mg HCl 25 mg 3-16 tablet 00:00: 00 ramipril 5 1-0 No 1mg mg capsule 3-16 00:00: 00 Levemir 2021-0 No 10(3 FlexTouch 3-16 mL) U-100 00:00: Insulin 100 00 unit/mL (3 mL) subcutaneou s pen Novolin R 2021-0 No unit/mL Regular 3-16 U-100 00:00: Insulin 100 00 unit/mL injection solution metformin 1-0 No 1mg 850 mg 3-16 tablet 00:00: 00 pravastatin 2021-0 No 1mg 40 mg 3-16 tablet 00:00: 00 hydroxyzine 2021-0 No 1mg HCl 25 mg 3-16 tablet 00:00: 00 ramipril 5 1-0 No 1mg mg capsule 3-16 00:00: 00 Levemir 2020-0 No 10(3 FlexTouch 9-23 mL) U-100 00:00: Insulin 100 00 unit/mL (3 mL) subcutaneou s pen Novolin R 2020-0 No unit/mL Regular 9-23 U-100 00:00: Insulin 100 00 unit/mL injection solution metformin 2020-0 No 1mg 850 mg 9-23 tablet 00:00: 00 pravastatin 2020-0 No 1mg 40 mg 9-23 tablet 00:00: 00 ramipril 5 2020-0 No 1mg mg capsule 9 00:00: 00 Levemir 2020-0 No 10(3 FlexTouch 9-23 mL) U-100 00:00: Insulin 100 00 unit/mL (3 mL) subcutaneou s pen Novolin R 2020-0 No unit/mL Regular 9-23 U-100 00:00: Insulin 100 00 unit/mL injection solution metformin 2020-0 No 1mg 850 mg 9-23 tablet 00:00: 00 pravastatin 2020-0 No 1mg 40 mg 9-23 tablet 00:00: 00 ramipril 5 2020-0 No 1mg mg capsule 08-17 00:00: 00 Novolin R 2020-0 No unit/mL Regular 5-21 U-100 00:00: Insulin 100 00 unit/mL injection solution gabapentin 2020-0 No 1mg 100 mg 5-21 capsule 00:00: 00 Novolin R 2020-0 No unit/mL Regular 5-21 U-100 00:00: Insulin 100 00 unit/mL injection solution gabapentin 2020-0 No 1mg 100 mg 5-21 capsule 00:00: 00 Levemir 2020-0 No 10(3 FlexTouch 3-20 mL) U-100 00:00: Insulin 100 00 unit/mL (3 mL) subcutaneou s pen metformin 2020-0 No 1mg 850 mg 3-20 tablet 00:00: 00 pravastatin 2020-0 No 1mg 40 mg 3-20 tablet 00:00: 00 ramipril 5 2020-0 No 1mg mg capsule 3-20 00:00: 00 Levemir 2020-0 No 10(3 FlexTouch 3-20 mL) U-100 00:00: Insulin 100 00 unit/mL (3 mL) subcutaneou s pen metformin 2020-0 No 1mg 850 mg 3-20 tablet 00:00: 00 pravastatin 2020-0 No 1mg 40 mg 3-20 tablet 00:00: 00 ramipril 5 2020-0 No 1mg mg capsule 3-20 00:00: 00 diclofenac 2020-0 No % 1 % topical 3-18 gel 00:00: 00 diclofenac 2020-0 No % 1 % topical 3-18 gel 00:00: 00 diclofenac 2020-0 No 1mg sodium 50 3-18 mg 00:00: tablet,ashley 00 yed release diclofenac 2020-0 No 1mg sodium 50 3-18 mg 00:00: tablet,ashley 00 yed release glyburide 5 2017-0 No 1mg mg tablet 1-14 00:00: 00 metformin 2017-0 No 1mg 850 mg 1-14 tablet 00:00: 00 pravastatin 2017-0 No 1mg 40 mg 1-14 tablet 00:00: 00 ramipril 5 2016-0 No 1mg mg capsule 1-14 00:00: 00 glyburide 5 2016-0 No 1mg mg tablet 1-14 00:00: 00 metformin 2017-0 No 1mg 850 mg 1-14 tablet 00:00: 00 pravastatin 2017-0 No 1mg 40 mg 1-14 tablet 00:00: 00 ramipril 5 2016-0 No 1mg mg capsule 1-14 00:00: 00 glyburide 5 2015-0 No 1mg mg tablet 6-24 00:00: 00 metformin 2016-0 No 1mg 850 mg 6-24 tablet 00:00: 00 pravastatin 2016-0 No 1mg 40 mg 6-24 tablet 00:00: 00 ramipril 5 2015-0 No 1mg mg capsule 624 00:00: 00 glyburide 5 2016-0 No 1mg mg tablet 6 00:00: 00 metformin 2016-0 No 1mg 850 mg 6-24 tablet 00:00: 00 pravastatin 2016-0 No 1mg 40 mg 6-24 tablet 00:00: 00 ramipril 5 2015-0 No 1mg mg capsule 624 00:00: 00 glyburide 5 2015-0 No 1mg mg tablet - 00:00: 00 metformin 2016-0 No 1mg 850 mg 4- tablet 00:00: 00 glyburide 5 2015-0 No 1mg mg tablet - 00:00: 00 metformin 2016-0 No 1mg 850 mg 4- tablet 00:00: 00 glyburide 5 2016-0 No 1mg mg tablet 3- 00:00: 00 metformin 2016-0 No 1mg 850 mg 3-08 tablet 00:00: 00 glyburide 5 2016-0 No 1mg mg tablet 3- 00:00: 00 metformin 2016-0 No 1mg 850 mg 3- tablet 00:00: 00 pravastatin 2016-0 No 1mg 40 mg 3- tablet 00:00: 00 ramipril 5 2015-0 No 1mg mg capsule 3 00:00: 00 pravastatin 2016-0 No 1mg 40 mg 3- tablet 00:00: 00 ramipril 5 2015-0 No 1mg mg capsule 3 00:00: 00 glyburide 5 2015-0 No 1mg mg tablet 2- 00:00: 00 metformin 2015-0 No 1mg 850 mg 2-09 tablet 00:00: 00 pravastatin 2015-0 No 1mg 40 mg 2- tablet 00:00: 00 ramipril 5 2015-0 No 1mg mg capsule 2- 00:00: 00 glyburide 5 2015-0 No 1mg mg tablet 2- 00:00: 00 metformin 2015-0 No 1mg 850 mg 2- tablet 00:00: 00 pravastatin 2015-0 No 1mg 40 mg 2- tablet 00:00: 00 ramipril 5 2015-0 No 1mg mg capsule 2 00:00: 00 glyburide 5 2014-1 No 1mg mg tablet 2 00:00: 00 metformin 2014-1 No 1mg 850 mg 2- tablet 00:00: 00 pravastatin 2014-1 No 1mg 40 mg 2- tablet 00:00: 00 glyburide 5 2014-1 No 1mg mg tablet 2- 00:00: 00 metformin 2014-1 No 1mg 850 mg 2-07 tablet 00:00: 00 pravastatin 2014-1 No 1mg 40 mg 2-07 tablet 00:00: 00 ramipril 5 2014-1 No 1mg mg capsule 1- 00:00: 00 glyburide 5 2014-1 No 1mg mg tablet 1- 00:00: 00 metformin 2014-1 No 1mg 850 mg 1-25 tablet 00:00: 00 pravastatin 2014-1 No 1mg 40 mg 1-25 tablet 00:00: 00 ramipril 5 2014- No 1mg mg capsule 12-19 00:00: 00 glyburide 5 2014-1 No 1mg mg tablet 12-19 00:00: 00 metformin 2014-1 No 1mg 850 mg 1-25 tablet 00:00: 00 pravastatin 2014-1 No 1mg 40 mg 1-25 tablet 00:00: 00 glyburide 5 2014-0 No 1mg mg tablet 08-22 00:00: 00 metformin 2015-0 No 1mg 850 mg - tablet 00:00: 00 ramipril 5 2014-0 No 1mg mg capsule 08-22 00:00: 00 glyburide 5 2014-0 No 1mg mg tablet 08-22 00:00: 00 metformin 2015-0 No 1mg 850 mg 08-22 tablet 00:00: 00 ramipril 5 2014-0 No 1mg mg capsule 08-22 00:00: 00 pravastatin 2014-0 No 1mg 40 mg 7-31 tablet 00:00: 00 pravastatin 2014-0 No 1mg 40 mg 7-31 tablet 00:00: 00 Vital Signs Vital Name Observation Time Observation Value Comments Source BP Systolic 2022-07-30 10:52:00 143 mm[Hg] BP Diastolic 2022-07-30 10:52:00 81 mm[Hg] Weight Measured 2022-07-30 10:52:00 153.80 pounds Height Measured 2022-07-30 10:52:00 60.00 inches Body Temperature 2022-07-30 10:52:00 98.10 degrees Heart Rate 2022-07-30 10:52:00 72.00 /min Respiratory Rate 2022-07-30 10:52:00 BP Systolic 2022-06-08 10:50:00 153 mm[Hg] BP Diastolic 2022-06-08 10:50:00 85 mm[Hg] Weight Measured 2022-06-08 10:50:00 152.40 pounds Height Measured 2022-06-08 10:50:00 60.00 inches Body Temperature 2022-06-08 10:50:00 98.10 degrees Heart Rate 2022-06-08 10:50:00 69.00 /min Respiratory Rate 2022-06-08 10:50:00 18.00 /min BP Systolic 2022-02-20 11:37:00 149 mm[Hg] BP Diastolic 2022-02-20 11:37:00 78 mm[Hg] Weight Measured 2022-02-20 11:37:00 151.80 pounds Height Measured 2022-02-20 11:37:00 60.00 inches Body Temperature 2022-02-20 11:37:00 98.20 degrees Heart Rate 2022-02-20 11:37:00 87.00 /min Respiratory Rate 2022-02-20 11:37:00 16.00 /min BP Systolic 2022-02-08 10:49:00 159 mm[Hg] BP Diastolic 2022-02-08 10:49:00 84 mm[Hg] Weight Measured 2022-02-08 10:49:00 151.20 pounds Height Measured 2022-02-08 10:49:00 60.00 inches Body Temperature 2022-02-08 10:49:00 98.00 degrees Heart Rate 2022-02-08 10:49:00 80.00 /min Respiratory Rate 2022-02-08 10:49:00 16.00 /min BP Systolic 2021-08-19 10:54:00 122 mm[Hg] BP Diastolic 2021-08-19 10:54:00 70 mm[Hg] Weight Measured 2021-08-19 10:54:00 142.60 pounds Height Measured 2021-08-19 10:54:00 60.00 inches Body Temperature 2021-08-19 10:54:00 98.40 degrees Heart Rate 2021-08-19 10:54:00 94.00 /min Respiratory Rate 2021-08-19 10:54:00 BP Systolic 2021-02-07 10:53:00 160 mm[Hg] BP Diastolic 2021-02-07 10:53:00 75 mm[Hg] Weight Measured 2021-02-07 10:53:00 152.60 pounds Height Measured 2021-02-07 10:53:00 60.00 inches Body Temperature 2021-02-07 10:53:00 98.50 degrees Heart Rate 2021-02-07 10:53:00 67.00 /min Respiratory Rate 2021-02-07 10:53:00 16.00 /min BP Systolic 2020-08-17 13:25:00 105 mm[Hg] BP Diastolic 2020-08-17 13:25:00 67 mm[Hg] Weight Measured 2020-08-17 13:25:00 180.00 pounds Height Measured 2020-08-17 13:25:00 60.00 inches Body Temperature 2020-08-17 13:25:00 98.00 degrees Heart Rate 2020-08-17 13:25:00 84.00 /min Respiratory Rate 2020-08-17 13:25:00 16.00 /min BP Systolic 2020-04-14 09:40:00 140 mm[Hg] BP Diastolic 2020-04-14 09:40:00 88 mm[Hg] Weight Measured 2020-04-14 09:40:00 141.00 pounds Height Measured 2020-04-14 09:40:00 60.00 inches Body Temperature 2020-04-14 09:40:00 98.90 degrees Heart Rate 2020-04-14 09:40:00 62.00 /min Respiratory Rate 2020-04-14 09:40:00 16.00 /min BP Systolic 2020-02-10 10:36:00 130 mm[Hg] BP Diastolic 2020-02-10 10:36:00 80 mm[Hg] Weight Measured 2020-02-10 10:36:00 134.60 pounds Height Measured 2020-02-10 10:36:00 60.00 inches Body Temperature 2020-02-10 10:36:00 98.50 degrees Heart Rate 2020-02-10 10:36:00 69.00 /min Respiratory Rate 2020-02-10 10:36:00 16.00 /min BP Systolic 2016-12-08 08:42:00 135 mm[Hg] BP Diastolic 2016-12-08 08:42:00 82 mm[Hg] Weight Measured 2016-12-08 08:42:00 156.00 pounds Height Measured 2016-12-08 08:42:00 60.00 inches Body Temperature 2016-12-08 08:42:00 97.70 degrees Heart Rate 2016-12-08 08:42:00 70.00 /min Respiratory Rate 2016-12-08 08:42:00 16.00 /min BP Systolic 2016-05-18 15:45:00 134 mm[Hg] BP Diastolic 2016-05-18 15:45:00 81 mm[Hg] Weight Measured 2016-05-18 15:45:00 164.00 pounds Height Measured 2016-05-18 15:45:00 149.00 inches Body Temperature 2016-05-18 15:45:00 97.70 degrees Heart Rate 2016-05-18 15:45:00 68.00 /min Respiratory Rate 2016-05-18 15:45:00 15.00 /min Procedures Procedure Date / Time Performed Performing Clinician [facility] e 42452 Ecg Routine Ecg W/least 12 2016-12-08 00:00:00 Lds W/i r Plan of Care Planned Activity Planned Date Details Comments Source Goal Plan of Care Note [code = 64927-7] Goal Plan of Care Note [code = 00694-1] Goal Plan of Care Note [code = 14469-2] Goal Plan of Care Note [code = 02449-1] Goal Plan of Care Note [code = 30377-3] Goal Plan of Care Note [code = 48255-2] Goal Plan of Care Note [code = 15519-9] Goal Plan of Care Note [code = 41839-8] Goal Plan of Care Note [code = 09366-8] Goal Plan of Care Note [code = 01467-0] Goal Plan of Care Note [code = 96022-5] Goal Plan of Care Note [code = 19906-0] Goal Plan of Care Note [code = 89153-8] Goal Plan of Care Note [code = 25678-0] Goal Plan of Care Note [code = 01414-6] Goal Plan of Care Note [code = 26047-8] Goal Plan of Care Note [code = 62842-0] Goal Plan of Care Note [code = 80553-4] Goal Plan of Care Note [code = 68726-5] Goal Plan of Care Note [code = 45799-1] Goal Plan of Care Note [code = 31924-3] Goal Plan of Care Note [code = 81382-0] Goal Plan of Care Note [code = 74700-9] Goal Plan of Care Note [code = 26141-3] Goal Plan of Care Note [code = 41905-9] Goal Plan of Care Note [code = 03033-7] Goal Plan of Care Note [code = 89491-1] Goal Plan of Care Note [code = 25883-0] Goal Plan of Care Note [code = 10703-7] Goal Plan of Care Note [code = 89955-0] Goal Plan of Care Note [code = 88025-0] Goal Plan of Care Note [code = 80771-8] Goal Plan of Care Note [code = 11361-7] Goal Plan of Care Note [code = 84786-1] Goal Plan of Care Note [code = 57786-5] Goal Plan of Care Note [code = 44409-0] Encounters Start End Encounter Admission Attending Care Care Encounter Source Date/Time Date/Time Type Type Clinicians Facility Department ID 2022-07-30 2022-07-30 Outpatient [id number] 00:00:00 00:00:00 Visit [id number]-[id number] -[id number] 2801-07-15 2022-06-08 Outpatient [id number] 00:00:00 00:00:00 Visit [id number] Results Test Description Test Time Test Comments Results Result Comments Source TROPONIN T 2022-08-03 08:44:53 Test Item Value Reference Range Interpretation Comme nts TROPONIN T (test 25 NG/L <14 HH INTERPRETI VE INFORMATION:METHODOLOGY IS 5TH code = 4017) GENERATION HIGH SENSITIVITY CARDIAC TROPONIN.REFERE NCE INTERVALS GIVEN ABOVE ARE BELOW THE 99TH PERCEN TILE OFAPPARENTLY HEALTHY ADULT PATIENTS. ELEVA TIONS OF CARDIAC TROPONIN TMAY BE SEEN IN PATIENT S WITH MYOCARDIAL INJURY, SEEN IN STABLE ORUNS TABLE ANGINA, HEART FAILURE, MYOCARDITIS, PU LMONARY EMBOLISM,PERICARDITIS, ARRHYTHMIAS, CA RDIAC CONTUSIONS, AND CARDIAC TRANSPLANTSELEV ATIONS ARE ALSO NOTABLE IN PATIENTS WITH RHABDOMYOL YSIS ANDPOLYMYOSITIS. FOR MORE INFORMATION, SE E CLIENT ANNOUNCEMENT AT [email or web address] UNLESS OTHERWISE INDIC ATED, ALL TESTING PERFORMED ATCLINICAL PATH [facility] [address] [id number] 1082 [employer]ET [employer] SMITH: ANDREA VINCENT M.D. [place] NUMBER [id number] CAP ACCREDITATION N O. [id number] HEMOGLOBIN [id number] 05:17:17 Test Item Value Reference Range Interpretation Comments HEMOGLOBIN A1c (test 11.6 % 4.2-5.6 H AMERIC AN DIABETES code = 29131) ASSOCIATION IDELINES FOR HGB A1C: PREDIABETES/INC REASED RISK . . . . . . . 5 .7-6.4% DIAGNOSIS OF DI ABETES . . . . . . . . . >=6 .5% WITH CONFIRMATION OR APPROPRIATE SYMPTOMS NOTE: ASSAY MAY BE AFFECTED BY HEMOGLOBINOPATH IES (SICKLE CELL ANEMIA, S- C DISEASE, OTHERS) OR LEWIS FICIALLY LOWERED BY DECR EASED RED CELL SURVIVAL ( HEMOLYTIC ANEMIAS, BLOOD LOSS, ETC.). CONSIDER ALTERN ATE TESTING OR LABORATORY C ONSULTATION. LIPID [id number] 05:16:24 Test Item Value Reference Range Interpretation Comments CHOLESTEROL (test 211 MG/DL <200 H code = 2210) TRIGLYCERIDES (test 161 MG/DL <150 H code = 2232) HDL CHOLESTEROL (test 52 MG/DL >39 code = 2220) CALC LDL CHOL (test 131 MG/DL <100 H NOTE: C ALCULATED LDL code = 2237) IS BASED ON RAMON-MINOR METHOD WHICHINCLUDES ADJUSTABLE TRIGLYCERIDE:VL DL CHOLESTEROL RAT IO.THIS FACTOR VARIES B Y MEASURED TRIGLY CERIDE AND NON-HDLCHOL ESTEROL CONCENTRATIONS WITH INCREASED CALCU LATED LDL SEENIN HIGH ER TRIGLYCERIDE OR LOWER NON-HDL SPECIME NS. FOR MOREINFORMATION , SEE CLIENT ANNOUNCE MENT AT [email or web address] [email or web address] RATIO LDL/HDL 2.52 RATIO <3.22 (test code = 2238) COMPREHENSIVE METABOLIC [id number] 05:16:24 Test Item Value Reference Range Interpretation Comments GLUCOSE (test code = 351 MG/DL 70-99 H 2216) BUN (test code = 11 MG/DL -2207) CREATININE (test 0.44 MG/DL 0.60-1.30 L code = 2214) eGFR (2020 CKD-EPI) 110 >60 (test code = 90635) ML/MIN/1.73 CALC BUN/CREAT (test 25 RATIO 6-28 code = 2235) SODIUM (test code = 137 MEQ/L 239-457 3475) POTASSIUM (test code 4.5 MEQ/L 3.5-5.4 = 2228) CHLORIDE (test code 99 MEQ/L 95-107 = 2215) CARBON DIOXIDE (test 27 MEQ/L 19-31 code = 2206) CALCIUM (test code = 9.9 MG/DL 8.5-10.5 2208) PROTEIN, TOTAL (test 7.1 G/DL 6.1-8.3 code = 2229) ALBUMIN (test code = 4.4 G/DL 3.5-5.2 2200) CALC GLOBULIN (test 2.7 G/DL 1.9-3.7 code = 2240) CALC A/G RATIO (test 1.6 RATIO 1.0-2.6 code = 2234) BILIRUBIN, TOTAL 0.5 MG/DL See_Comment [Automated message] (test code = 2207) The syste m which generated this result transmitted ref erence range: <=1.2. T he reference range was not used to int erpret this result as normal/abnormal . ALKALINE PHOSPHATASE 107 U/L 40-140 (test code = 2204) AST (test code = 17 U/L 9-40 2217) ALT (test code = 16 U/L 5-40 UNLESS OTH ERWISE 2218) INDICATED, ALL TESTING PERFORM ED ATCLINICAL PATH OLOGY LABORATORIES, [facility]. [address] [place], [place] [id number] [place] [address] DIRECTOR: ANDREA VINCENT M.D. CLIA NUMBER [id number] CAP ACCREDITATION N O. [id number] CBC W/AUTO DIFF WITH [id number] 04:48:59 Test Item Value Reference Range Interpretation Comments WBC (test code = 6.0 K/UL 3.5-11.0 1001) RBC (test code = 4.98 M/UL 3.80-5.40 1002) HEMOGLOBIN (test code 15.0 G/DL 11.5-15.5 = 1003) HEMATOCRIT (test code 43.0 % 34.0-45.0 = 1004) MCV (test code = 86.3 fL 80.0-99.0 1005) MCH (test code = 30.1 PG 25.0-33.0 1006) MCHC (test code = 34.9 G/DL 31.0-36.0 1007) RDW (test code = 12.4 % 11.5-15.0 1038) NEUTROPHILS (test 53.8 % code = 1008) LYMPHOCYTES (test 35.3 % code = 1010) MONOCYTES (test code 6.8 % = 1011) EOSINOPHILS (test 2.7 % code = 1012) BASOPHILS (test code 1.2 % = 1013) IMMATURE GRANULOCYTES 0.2 % (test code = 1036) NUCLEATED RBCS (test 0.0 /100 WBC'S See_Comment [Aut omated code = 1065) message] The sy stem which generated this result transmitted reference range : 0.0. The refere nce range was not u sed to interpret th is result as normal/abnormal . PLATELET COUNT (test 319 K/UL 130-400 code = 1015) ABSOLUTE NEUTROPHILS 3.24 K/UL 1.50-7.50 (test code = 1066) ABSOLUTE LYMPHOCYTES 2.12 K/UL 1.00-4.00 (test code = 1067) ABSOLUTE MONOCYTES 0.41 K/UL 0.20-1.00 (test code = 1068) ABSOLUTE EOSINOPHILS 0.16 K/UL 0.00-0.50 (test code = 1040) ABSOLUTE BASOPHILS 0.07 K/UL 0.00-0.20 (test code = 1069) ABS IMMATURE 0.01 K/UL 0.00-0.10 GRANULOCYTES (test code = 1020) ABS NUCLEATED RBCS 0.00 K/UL 0.00-0.11 (test code = 90081) CBC W/AUTO [id number] 00:00:00 Test Item Value Reference Range Interpretation Comments WBC (test code = 1001) 6.0 K/UL RBC (test code = 1002) 4.98 M/UL HEMOGLOBIN (test code = 1003) 15.0 G/DL HEMATOCRIT (test code = 1004) 43.0 % MCV (test code = 1005) 86.3 fL MCH (test code = 1006) 30.1 PG MCHC (test code = 1007) 34.9 G/DL RDW (test code = 1038) 12.4 % NEUTROPHILS (test code = 1008) 53.8 % LYMPHOCYTES (test code = 1010) 35.3 % MONOCYTES (test code = 1011) 6.8 % EOSINOPHILS (test code = 1012) 2.7 % BASOPHILS (test code = 1013) 1.2 % IMMATURE GRANULOCYTES (test 0.2 % code = 1036) NUCLEATED RBCS (test code = 0.0 /100WBC'S 1065) PLATELET COUNT (test code = 319 K/UL 1015) ABSOLUTE NEUTROPHILS (test code 3.24 K/UL = 1066) ABSOLUTE LYMPHOCYTES (test code 2.12 K/UL = 1067) ABSOLUTE MONOCYTES (test code = 0.41 K/UL 1068) ABSOLUTE EOSINOPHILS (test code 0.16 K/UL = 1040) ABSOLUTE BASOPHILS (test code = 0.07 K/UL 1069) ABS IMMATURE GRANULOCYTES (test 0.01 K/UL code = 1020) ABS NUCLEATED RBCS (test code = 0.00 K/UL 85386) CBC W/AUTO [id number] 00:00:00 Test Item Value Reference Range Interpretation Comments WBC (test code = 1001) 6.0 K/UL RBC (test code = 1002) 4.98 M/UL HEMOGLOBIN (test code = 1003) 15.0 G/DL HEMATOCRIT (test code = 1004) 43.0 % MCV (test code = 1005) 86.3 fL MCH (test code = 1006) 30.1 PG MCHC (test code = 1007) 34.9 G/DL RDW (test code = 1038) 12.4 % NEUTROPHILS (test code = 1008) 53.8 % LYMPHOCYTES (test code = 1010) 35.3 % MONOCYTES (test code = 1011) 6.8 % EOSINOPHILS (test code = 1012) 2.7 % BASOPHILS (test code = 1013) 1.2 % IMMATURE GRANULOCYTES (test 0.2 % code = 1036) NUCLEATED RBCS (test code = 0.0 /100WBC'S 1065) PLATELET COUNT (test code = 319 K/UL 1015) ABSOLUTE NEUTROPHILS (test code 3.24 K/UL = 1066) ABSOLUTE LYMPHOCYTES (test code 2.12 K/UL = 1067) ABSOLUTE MONOCYTES (test code = 0.41 K/UL 1068) ABSOLUTE EOSINOPHILS (test code 0.16 K/UL = 1040) ABSOLUTE BASOPHILS (test code = 0.07 K/UL 1069) ABS IMMATURE GRANULOCYTES (test 0.01 K/UL code = 1020) ABS NUCLEATED RBCS (test code = 0.00 K/UL 07260) LIPID [id number] 00:00:00 Test Item Value Reference Range Interpretation Comments CHOLESTEROL (test code = 2210) 211 MG/DL TRIGLYCERIDES (test code = 2232) 161 MG/DL HDL CHOLESTEROL (test code = 2220) 52 MG/DL CALC LDL CHOL (test code = 2237) 131 MG/DL RISK RATIO LDL/HDL (test code = 2.52 RATIO 2238) LIPID [id number] 00:00:00 Test Item Value Reference Range Interpretation Comments CHOLESTEROL (test code = 2210) 211 MG/DL TRIGLYCERIDES (test code = 2232) 161 MG/DL HDL CHOLESTEROL (test code = 2220) 52 MG/DL CALC LDL CHOL (test code = 2237) 131 MG/DL RISK RATIO LDL/HDL (test code = 2.52 RATIO 2238) HEMOGLOBIN [id number] 00:00:00 Test Item Value Reference Range Interpretation Comments HEMOGLOBIN A1c (test code = 46374) 11.6 % HEMOGLOBIN [id number] 00:00:00 Test Item Value Reference Range Interpretation Comments HEMOGLOBIN A1c (test code = 68978) 11.6 % HEMOGLOBIN [id number] 00:00:00 Test Item Value Reference Range Interpretation Comments HEMOGLOBIN A1c (test code = 94486) 11.6 % COMPREHENSIVE METABOLIC [id number] 00:00:00 Test Item Value Reference Range Interpretation Comments GLUCOSE (test code = 2217) 351 MG/DL BUN (test code = 2208) 11 MG/DL CREATININE (test code = 2214) 0.44 MG/DL eGFR (2020 CKD-EPI) (test 110 ML/MIN/1.73 code = 57890) CALC BUN/CREAT (test code = 25 RATIO 2235) SODIUM (test code = 2231) 137 MEQ/L POTASSIUM (test code = 2228) 4.5 MEQ/L CHLORIDE (test code = 2215) 99 MEQ/L CARBON DIOXIDE (test code = 27 MEQ/L 2205) CALCIUM (test code = 2209) 9.9 MG/DL PROTEIN, TOTAL (test code = 7.1 G/DL 2228) ALBUMIN (test code = 2201) 4.4 G/DL CALC GLOBULIN (test code = 2.7 G/DL 2240) CALC A/G RATIO (test code = 1.6 RATIO 2234) BILIRUBIN, TOTAL (test code = 0.5 MG/DL 2206) ALKALINE PHOSPHATASE (test 107 U/L code = 2204) AST (test code = 2218) 17 U/L ALT (test code = 2219) 16 U/L COMPREHENSIVE METABOLIC [id number] 00:00:00 Test Item Value Reference Range Interpretation Comments GLUCOSE (test code = 2217) 351 MG/DL BUN (test code = 2208) 11 MG/DL CREATININE (test code = 2214) 0.44 MG/DL eGFR (2020 CKD-EPI) (test 110 ML/MIN/1.73 code = 55003) CALC BUN/CREAT (test code = 25 RATIO 2235) SODIUM (test code = 2231) 137 MEQ/L POTASSIUM (test code = 2228) 4.5 MEQ/L CHLORIDE (test code = 2215) 99 MEQ/L CARBON DIOXIDE (test code = 27 MEQ/L 2205) CALCIUM (test code = 2209) 9.9 MG/DL PROTEIN, TOTAL (test code = 7.1 G/DL 2228) ALBUMIN (test code = 2201) 4.4 G/DL CALC GLOBULIN (test code = 2.7 G/DL 2240) CALC A/G RATIO (test code = 1.6 RATIO 2234) BILIRUBIN, TOTAL (test code = 0.5 MG/DL 2206) ALKALINE PHOSPHATASE (test 107 U/L code = 2204) AST (test code = 2218) 17 U/L ALT (test code = 2219) 16 U/L CBC W/AUTO [id number] 00:00:00 Test Item Value Reference Range Interpretation Comments WBC (test code = 1001) 6.0 K/UL RBC (test code = 1002) 4.98 M/UL HEMOGLOBIN (test code = 1003) 15.0 G/DL HEMATOCRIT (test code = 1004) 43.0 % MCV (test code = 1005) 86.3 fL MCH (test code = 1006) 30.1 PG MCHC (test code = 1007) 34.9 G/DL RDW (test code = 1038) 12.4 % NEUTROPHILS (test code = 1008) 53.8 % LYMPHOCYTES (test code = 1010) 35.3 % MONOCYTES (test code = 1011) 6.8 % EOSINOPHILS (test code = 1012) 2.7 % BASOPHILS (test code = 1013) 1.2 % IMMATURE GRANULOCYTES (test 0.2 % code = 1036) NUCLEATED RBCS (test code = 0.0 /100WBC'S 1065) PLATELET COUNT (test code = 319 K/UL 1015) ABSOLUTE NEUTROPHILS (test code 3.24 K/UL = 1066) ABSOLUTE LYMPHOCYTES (test code 2.12 K/UL = 1067) ABSOLUTE MONOCYTES (test code = 0.41 K/UL 1068) ABSOLUTE EOSINOPHILS (test code 0.16 K/UL = 1040) ABSOLUTE BASOPHILS (test code = 0.07 K/UL 1069) ABS IMMATURE GRANULOCYTES (test 0.01 K/UL code = 1020) ABS NUCLEATED RBCS (test code = 0.00 K/UL 24862) ALBUMIN/CREATININE RATIO, URINE, [id number] 05:45:53 Test Item Value Reference Range Interpretation Comments CREATININE, URINE, 44.4 MG/DL NOT ESTAB RANDOM (test code = 2072) ALBUMIN, URINE, 2.5 MG/DL NOT ESTAB RANDOM (test code = 63279) CALC 56 MG/G <30 H Note: Albumin/ Creatinine ALBUMIN/CREAT, RND ratio ref erence interval (test code = [place] [address]) guidelines. UNL ESS OTHERWISE INDIC ATED, ALL TESTING PERFORM ED ATCLINICAL PATH OLOGY LABORATORIES, [facility]. [address] [place] [address] LABORATORY DIRE CTOR: Ngoc [place]. CLIA NUMBER [id number] CAP ACCREDITATION N O. [id number] LIPID [id number] 02:52:41 Test Item Value Reference Range Interpretation Comments CHOLESTEROL (test 183 MG/DL <200 code = 2210) TRIGLYCERIDES (test 126 MG/DL <150 code = 2232) HDL CHOLESTEROL (test 54 MG/DL >39 code = 2220) CALC LDL CHOL (test 106 MG/DL <100 H NOTE: C ALCULATED LDL code = 2237) IS BASED ON RAMON-MINOR METHOD WHICHINCLUDES ADJUSTABLE TRIGLYCERIDE:VL DL CHOLESTEROL RAT IO.THIS FACTOR VARIES B Y MEASURED TRIGLY CERIDE AND NON-HDLCHOL ESTEROL CONCENTRATIONS WITH INCREASED CALCU LATED LDL SEENIN HIGH ER TRIGLYCERIDE OR LOWER NON-HDL SPECIME NS. FOR MOREINFORMATION , SEE CLIENT ANNOUNCE MENT AT [email or web address] RISK RATIO LDL/HDL 1.96 RATIO <3.22 (test code = 2238) HEMOGLOBIN [id number] 02:41:27 Test Item Value Reference Range Interpretation Comments HEMOGLOBIN A1c (test 13.2 % 4.2-5.6 H AMERIC AN DIABETES code = 09016) ASSOCIATION IDELINES FOR HGB A1C: PREDIABETES/INC REASED RISK . . . . . . . 5 .7-6.4% DIAGNOSIS OF DI ABETES . . . . . . . . . >=6 .5% WITH CONFIRMATION OR APPROPRIATE SYMPTOMS NOTE: ASSAY MAY BE AFFECTED BY HEMOGLOBINOPATH IES (SICKLE CELL ANEMIA, S- C DISEASE, OTHERS) OR LEWIS FICIALLY LOWERED BY DECR EASED RED CELL SURVIVAL ( HEMOLYTIC ANEMIAS, BLOOD LOSS, ETC.). CONSIDER ALTERN ATE TESTING OR LABORATORY C ONSULTATION. HEMOGLOBIN [id number] 00:00:00 Test Item Value Reference Range Interpretation Comments HEMOGLOBIN A1c (test code = 63945) 13.2 % HEMOGLOBIN [id number] 00:00:00 Test Item Value Reference Range Interpretation Comments HEMOGLOBIN A1c (test code = 53428) 13.2 % LIPID [id number] 00:00:00 Test Item Value Reference Range Interpretation Comments CHOLESTEROL (test code = 2210) 183 MG/DL TRIGLYCERIDES (test code = 2232) 126 MG/DL HDL CHOLESTEROL (test code = 2220) 54 MG/DL CALC LDL CHOL (test code = 2237) 106 MG/DL RISK RATIO LDL/HDL (test code = 1.96 RATIO 2238) LIPID [id number] 00:00:00 Test Item Value Reference Range Interpretation Comments CHOLESTEROL (test code = 2210) 183 MG/DL TRIGLYCERIDES (test code = 2232) 126 MG/DL HDL CHOLESTEROL (test code = 2220) 54 MG/DL CALC LDL CHOL (test code = 2237) 106 MG/DL RISK RATIO LDL/HDL (test code = 1.96 RATIO 2238) MICROALBUMIN/CREATININE, RANDOM AND [id number] 00:00:00 Test Item Value Reference Range Interpretation Comments CREATININE, URINE, RANDOM (test 44.4 MG/DL code = 2072) ALBUMIN, URINE, RANDOM (test code 2.5 MG/DL = 34796) CALC ALBUMIN/CREAT, RND (test code 56 MG/G = 40218) MICROALBUMIN/CREATININE, RANDOM AND [id number] 00:00:00 Test Item Value Reference Range Interpretation Comments CREATININE, URINE, RANDOM (test 44.4 MG/DL code = 2072) ALBUMIN, URINE, RANDOM (test code 2.5 MG/DL = 88490) CALC ALBUMIN/CREAT, RND (test code 56 MG/G = 09270) HEMOGLOBIN [id number] 00:00:00 Test Item Value Reference Range Interpretation Comments HEMOGLOBIN A1c (test code = 68881) 13.2 % HEMOGLOBIN [id number] 00:00:00 Test Item Value Reference Range Interpretation Comments HEMOGLOBIN A1c (test code = 69232) 13.2 % LIPID [id number] 00:00:00 Test Item Value Reference Range Interpretation Comments CHOLESTEROL (test code = 2210) 183 MG/DL TRIGLYCERIDES (test code = 2232) 126 MG/DL HDL CHOLESTEROL (test code = 2220) 54 MG/DL CALC LDL CHOL (test code = 2237) 106 MG/DL RISK RATIO LDL/HDL (test code = 1.96 RATIO 2238) MICROALBUMIN/CREATININE, RANDOM AND [id number] 00:00:00 Test Item Value Reference Range Interpretation Comments CREATININE, URINE, RANDOM (test 44.4 MG/DL code = 2072) ALBUMIN, URINE, RANDOM (test code 2.5 MG/DL = 34470) CALC ALBUMIN/CREAT, RND (test code 56 MG/G = 31764) HEMOGLOBIN [id number] 00:00:00 Test Item Value Reference Range Interpretation Comments HEMOGLOBIN A1c (test code = 30693) 13.2 % LIPID [id number] 00:00:00 Test Item Value Reference Range Interpretation Comments CHOLESTEROL (test code = 2210) 185 MG/DL TRIGLYCERIDES (test code = 2232) 187 MG/DL HDL CHOLESTEROL (test code = 2220) 50 MG/DL CALC LDL CHOL (test code = 2237) 105 MG/DL RISK RATIO LDL/HDL (test code = 2.10 RATIO 2238) LIPID [id number] 00:00:00 Test Item Value Reference Range Interpretation Comments CHOLESTEROL (test code = 2210) 185 MG/DL TRIGLYCERIDES (test code = 2232) 187 MG/DL HDL CHOLESTEROL (test code = 2220) 50 MG/DL CALC LDL CHOL (test code = 2237) 105 MG/DL RISK RATIO LDL/HDL (test code = 2.10 RATIO 2238) COMPREHENSIVE METABOLIC [id number] 00:00:00 Test Item Value Reference Range Interpretation Comments GLUCOSE (test code = 2217) 417 MG/DL BUN (test code = 2208) 10 MG/DL CREATININE (test code = 2214) 0.53 MG/DL eGFR AMER. (test code 120 ML/MIN/1.73 = 05523) eGFR NON- AMER. (test 103 ML/MIN/1.73 code = 35902) CALC BUN/CREAT (test code = 19 RATIO 2235) SODIUM (test code = 2231) 135 MEQ/L POTASSIUM (test code = 2228) 4.9 MEQ/L CHLORIDE (test code = 2215) 100 MEQ/L CARBON DIOXIDE (test code = 23 MEQ/L 2205) CALCIUM (test code = 2209) 9.8 MG/DL PROTEIN, TOTAL (test code = 7.2 G/DL 2228) ALBUMIN (test code = 2201) 4.6 G/DL CALC GLOBULIN (test code = 2.6 G/DL 2240) CALC A/G RATIO (test code = 1.8 RATIO 2234) BILIRUBIN, TOTAL (test code = 0.3 MG/DL 2206) ALKALINE PHOSPHATASE (test 98 U/L code = 2204) AST (test code = 2218) 14 U/L ALT (test code = 2219) 16 U/L COMPREHENSIVE METABOLIC [id number] 00:00:00 Test Item Value Reference Range Interpretation Comments GLUCOSE (test code = 2217) 417 MG/DL BUN (test code = 2208) 10 MG/DL CREATININE (test code = 2214) 0.53 MG/DL eGFR AMER. (test code 120 ML/MIN/1.73 = 95216) eGFR NON- AMER. (test 103 ML/MIN/1.73 code = 80658) CALC BUN/CREAT (test code = 19 RATIO 2235) SODIUM (test code = 2231) 135 MEQ/L POTASSIUM (test code = 2228) 4.9 MEQ/L CHLORIDE (test code = 2215) 100 MEQ/L CARBON DIOXIDE (test code = 23 MEQ/L 2205) CALCIUM (test code = 2209) 9.8 MG/DL PROTEIN, TOTAL (test code = 7.2 G/DL 2228) ALBUMIN (test code = 220) 4.6 G/DL CALC GLOBULIN (test code = 2.6 G/DL 224) CALC A/G RATIO (test code = 1.8 RATIO 223) BILIRUBIN, TOTAL (test code = 0.3 MG/DL 2206) ALKALINE PHOSPHATASE (test 98 U/L code = 220) AST (test code = 2218) 14 U/L ALT (test code = 2219) 16 U/L LIPID [id number] 00:00:00 Test Item Value Reference Range Interpretation Comments CHOLESTEROL (test code = 2210) 185 MG/DL TRIGLYCERIDES (test code = 2232) 187 MG/DL HDL CHOLESTEROL (test code = 2220) 50 MG/DL CALC LDL CHOL (test code = 2237) 105 MG/DL RISK RATIO LDL/HDL (test code = 2.10 RATIO 2238) COMPREHENSIVE METABOLIC [id number] 00:00:00 Test Item Value Reference Range Interpretation Comments GLUCOSE (test code = 2217) 417 MG/DL BUN (test code = 2208) 10 MG/DL CREATININE (test code = 2214) 0.53 MG/DL eGFR AMER. (test code 120 ML/MIN/1.73 = 78733) eGFR NON- AMER. (test 103 ML/MIN/1.73 code = 29010) CALC BUN/CREAT (test code = 19 RATIO 2235) SODIUM (test code = 2231) 135 MEQ/L POTASSIUM (test code = 2228) 4.9 MEQ/L CHLORIDE (test code = 2215) 100 MEQ/L CARBON DIOXIDE (test code = 23 MEQ/L 2205) CALCIUM (test code = 2209) 9.8 MG/DL PROTEIN, TOTAL (test code = 7.2 G/DL 2228) ALBUMIN (test code = 2201) 4.6 G/DL CALC GLOBULIN (test code = 2.6 G/DL 2240) CALC A/G RATIO (test code = 1.8 RATIO 2234) BILIRUBIN, TOTAL (test code = 0.3 MG/DL 2207) ALKALINE PHOSPHATASE (test 98 U/L code = 2204) AST (test code = 2218) 14 U/L ALT (test code = 2219) 16 U/L HEMOGLOBIN [id number] 00:00:00 Test Item Value Reference Range Interpretation Comments HEMOGLOBIN A1c (test code = 92512) 13.4 % HEMOGLOBIN [id number] 00:00:00 Test Item Value Reference Range Interpretation Comments HEMOGLOBIN A1c (test code = 57486) 13.4 % HEMOGLOBIN [id number] 00:00:00 Test Item Value Reference Range Interpretation Comments HEMOGLOBIN A1c (test code = 45715) 13.4 % HEMOGLOBIN [id number] 00:00:00 Test Item Value Reference Range Interpretation Comments HEMOGLOBIN A1c (test code = 22652) 13.4 % HEMOGLOBIN [id number] 00:00:00 Test Item Value Reference Range Interpretation Comments HEMOGLOBIN A1c (test code = 79247) 13.4 % LIPID [id number] 00:00:00 Test Item Value Reference Range Interpretation Comments CHOLESTEROL (test code = 2210) 178 MG/DL TRIGLYCERIDES (test code = 2232) 160 MG/DL HDL CHOLESTEROL (test code = 2220) 56 MG/DL CALC LDL CHOL (test code = 2237) 96 MG/DL RISK RATIO LDL/HDL (test code = 1.71 RATIO 2238) LIPID [id number] 00:00:00 Test Item Value Reference Range Interpretation Comments CHOLESTEROL (test code = 2210) 178 MG/DL TRIGLYCERIDES (test code = 2232) 160 MG/DL HDL CHOLESTEROL (test code = 2220) 56 MG/DL CALC LDL CHOL (test code = 2237) 96 MG/DL RISK RATIO LDL/HDL (test code = 1.71 RATIO 2238) HEMOGLOBIN [id number] 00:00:00 Test Item Value Reference Range Interpretation Comments HEMOGLOBIN A1c (test code = 97546) 12.0 % HEMOGLOBIN [id number] 00:00:00 Test Item Value Reference Range Interpretation Comments HEMOGLOBIN A1c (test code = 96679) 12.0 % HEMOGLOBIN [id number] 00:00:00 Test Item Value Reference Range Interpretation Comments HEMOGLOBIN A1c (test code = 56666) 12.0 % LIPID [id number] 00:00:00 Test Item Value Reference Range Interpretation Comments CHOLESTEROL (test code = 2210) 178 MG/DL TRIGLYCERIDES (test code = 2232) 160 MG/DL HDL CHOLESTEROL (test code = 2220) 56 MG/DL CALC LDL CHOL (test code = 2237) 96 MG/DL RISK RATIO LDL/HDL (test code = 1.71 RATIO 2238) HEMOGLOBIN [id number] 00:00:00 Test Item Value Reference Range Interpretation Comments HEMOGLOBIN A1c (test code = 45539) 12.0 % HEMOGLOBIN [id number] 00:00:00 Test Item Value Reference Range Interpretation Comments HEMOGLOBIN A1c (test code = 44237) 12.0 % HEMOGLOBIN [id number] 00:00:00 Test Item Value Reference Range Interpretation Comments HEMOGLOBIN A1c (test code = 83785) 13.1 % LIPID [id number] 00:00:00 Test Item Value Reference Range Interpretation Comments CHOLESTEROL (test code = 2210) 258 MG/DL TRIGLYCERIDES (test code = 2232) 376 MG/DL HDL CHOLESTEROL (test code = 2220) 50 MG/DL CALC LDL CHOL (test code = 2237) 150 MG/DL RISK RATIO LDL/HDL (test code = 3.00 RATIO 2238) LIPID [id number] 00:00:00 Test Item Value Reference Range Interpretation Comments CHOLESTEROL (test code = 2210) 258 MG/DL TRIGLYCERIDES (test code = 2232) 376 MG/DL HDL CHOLESTEROL (test code = 2220) 50 MG/DL CALC LDL CHOL (test code = 2237) 150 MG/DL RISK RATIO LDL/HDL (test code = 3.00 RATIO 2238) COMPREHENSIVE METABOLIC [id number] 00:00:00 Test Item Value Reference Range Interpretation Comments GLUCOSE (test code = 2217) 408 MG/DL BUN (test code = 2208) 10 MG/DL CREATININE (test code = 2214) 0.73 MG/DL eGFR AMER. (test code 104 ML/MIN/1.73 = 89199) eGFR NON- AMER. (test 90 ML/MIN/1.73 code = 66406) CALC BUN/CREAT (test code = 14 RATIO 2235) SODIUM (test code = 2231) 135 MEQ/L POTASSIUM (test code = 2228) 4.6 MEQ/L CHLORIDE (test code = 2215) 97 MEQ/L CARBON DIOXIDE (test code = 26 MEQ/L 2206) CALCIUM (test code = 2209) 9.8 MG/DL PROTEIN, TOTAL (test code = 6.9 G/DL 2229) ALBUMIN (test code = 2201) 4.5 G/DL CALC GLOBULIN (test code = 2.4 G/DL 2240) CALC A/G RATIO (test code = 1.9 RATIO 2234) BILIRUBIN, TOTAL (test code = 0.3 MG/DL 2207) ALKALINE PHOSPHATASE (test 121 U/L code = 2204) AST (test code = 2218) 15 U/L ALT (test code = 2219) 19 U/L COMPREHENSIVE METABOLIC [id number] 00:00:00 Test Item Value Reference Range Interpretation Comments GLUCOSE (test code = 2217) 408 MG/DL BUN (test code = 2208) 10 MG/DL CREATININE (test code = 2214) 0.73 MG/DL eGFR AMER. (test code 104 ML/MIN/1.73 = 09280) eGFR NON- AMER. (test 90 ML/MIN/1.73 code = 92142) CALC BUN/CREAT (test code = 14 RATIO 2235) SODIUM (test code = 2231) 135 MEQ/L POTASSIUM (test code = 2228) 4.6 MEQ/L CHLORIDE (test code = 2215) 97 MEQ/L CARBON DIOXIDE (test code = 26 MEQ/L 2205) CALCIUM (test code = 2209) 9.8 MG/DL PROTEIN, TOTAL (test code = 6.9 G/DL 222) ALBUMIN (test code = 2201) 4.5 G/DL CALC GLOBULIN (test code = 2.4 G/DL 2240) CALC A/G RATIO (test code = 1.9 RATIO 2234) BILIRUBIN, TOTAL (test code = 0.3 MG/DL 2207) ALKALINE PHOSPHATASE (test 121 U/L code = 2204) AST (test code = 2218) 15 U/L ALT (test code = 2219) 19 U/L HEMOGLOBIN [id number] 00:00:00 Test Item Value Reference Range Interpretation Comments HEMOGLOBIN A1c (test code = 95487) 13.1 % HEMOGLOBIN [id number] 00:00:00 Test Item Value Reference Range Interpretation Comments HEMOGLOBIN A1c (test code = 44992) 13.1 % LIPID [id number] 00:00:00 Test Item Value Reference Range Interpretation Comments CHOLESTEROL (test code = 2210) 258 MG/DL TRIGLYCERIDES (test code = 2232) 376 MG/DL HDL CHOLESTEROL (test code = 2220) 50 MG/DL CALC LDL CHOL (test code = 2237) 150 MG/DL RISK RATIO LDL/HDL (test code = 3.00 RATIO 2238) COMPREHENSIVE METABOLIC [id number] 00:00:00 Test Item Value Reference Range Interpretation Comments GLUCOSE (test code = 2217) 408 MG/DL BUN (test code = 2208) 10 MG/DL CREATININE (test code = 2214) 0.73 MG/DL eGFR AMER. (test code 104 ML/MIN/1.73 = 71511) eGFR NON- AMER. (test 90 ML/MIN/1.73 code = 27096) CALC BUN/CREAT (test code = 14 RATIO 2235) SODIUM (test code = 2231) 135 MEQ/L POTASSIUM (test code = 2228) 4.6 MEQ/L CHLORIDE (test code = 2215) 97 MEQ/L CARBON DIOXIDE (test code = 26 MEQ/L 2205) CALCIUM (test code = 2209) 9.8 MG/DL PROTEIN, TOTAL (test code = 6.9 G/DL 2228) ALBUMIN (test code = 2201) 4.5 G/DL CALC GLOBULIN (test code = 2.4 G/DL 2240) CALC A/G RATIO (test code = 1.9 RATIO 2234) BILIRUBIN, TOTAL (test code = 0.3 MG/DL 2206) ALKALINE PHOSPHATASE (test 121 U/L code = 2204) AST (test code = 2218) 15 U/L ALT (test code = 2219) 19 U/L HEMOGLOBIN [id number] 00:00:00 Test Item Value Reference Range Interpretation Comments HEMOGLOBIN A1c (test code = 53177) 13.1 % HEMOGLOBIN [id number] 00:00:00 Test Item Value Reference Range Interpretation Comments HEMOGLOBIN A1c (test code = 28486) 13.1 % COMPREHENSIVE METABOLIC [id number] 00:00:00 Test Item Value Reference Range Interpretation Comments GLUCOSE (test code = 2217) 251 MG/DL BUN (test code = 2208) 7 MG/DL CREATININE (test code = 2214) 0.42 MG/DL eGFR AMER. (test code 130 ML/MIN/1.73 = 64826) eGFR NON- AMER. (test 112 ML/MIN/1.73 code = 15596) CALC BUN/CREAT (test code = 17 RATIO 2235) SODIUM (test code = 2231) 140 MEQ/L POTASSIUM (test code = 2228) 4.4 MEQ/L CHLORIDE (test code = 2215) 98 MEQ/L CARBON DIOXIDE (test code = 27 MEQ/L 2205) CALCIUM (test code = 2209) 9.7 MG/DL PROTEIN, TOTAL (test code = 7.0 G/DL 2228) ALBUMIN (test code = 2201) 4.6 G/DL CALC GLOBULIN (test code = 2.4 G/DL 2239) CALC A/G RATIO (test code = 1.9 RATIO 2233) BILIRUBIN, TOTAL (test code = 0.3 MG/DL 2206) ALKALINE PHOSPHATASE (test 95 U/L code = 2204) AST (test code = 2218) 13 U/L ALT (test code = 2219) 15 U/L LIPID [id number] 00:00:00 Test Item Value Reference Range Interpretation Comments CHOLESTEROL (test code = 2210) 186 MG/DL TRIGLYCERIDES (test code = 2232) 142 MG/DL HDL CHOLESTEROL (test code = 2220) 58 MG/DL CALC LDL CHOL (test code = 2237) 104 MG/DL RISK RATIO LDL/HDL (test code = 1.79 RATIO 2238) LIPID [id number] 00:00:00 Test Item Value Reference Range Interpretation Comments CHOLESTEROL (test code = 2210) 186 MG/DL TRIGLYCERIDES (test code = 2232) 142 MG/DL HDL CHOLESTEROL (test code = 2220) 58 MG/DL CALC LDL CHOL (test code = 2237) 104 MG/DL RISK RATIO LDL/HDL (test code = 1.79 RATIO 2238) HEMOGLOBIN [id number] 00:00:00 Test Item Value Reference Range Interpretation Comments HEMOGLOBIN A1c (test code = 72235) 10.6 % HEMOGLOBIN [id number] 00:00:00 Test Item Value Reference Range Interpretation Comments HEMOGLOBIN A1c (test code = 16131) 10.6 % HEMOGLOBIN [id number] 00:00:00 Test Item Value Reference Range Interpretation Comments HEMOGLOBIN A1c (test code = 75773) 10.6 % COMPREHENSIVE METABOLIC [id number] 00:00:00 Test Item Value Reference Range Interpretation Comments GLUCOSE (test code = 2217) 251 MG/DL BUN (test code = 2208) 7 MG/DL CREATININE (test code = 2214) 0.42 MG/DL eGFR AMER. (test code 130 ML/MIN/1.73 = 98346) eGFR NON- AMER. (test 112 ML/MIN/1.73 code = 00507) CALC BUN/CREAT (test code = 17 RATIO 2235) SODIUM (test code = 2231) 140 MEQ/L POTASSIUM (test code = 2228) 4.4 MEQ/L CHLORIDE (test code = 2215) 98 MEQ/L CARBON DIOXIDE (test code = 27 MEQ/L 2205) CALCIUM (test code = 2209) 9.7 MG/DL PROTEIN, TOTAL (test code = 7.0 G/DL 2228) ALBUMIN (test code = 2201) 4.6 G/DL CALC GLOBULIN (test code = 2.4 G/DL 2239) CALC A/G RATIO (test code = 1.9 RATIO 2234) BILIRUBIN, TOTAL (test code = 0.3 MG/DL 2206) ALKALINE PHOSPHATASE (test 95 U/L code = 2204) AST (test code = 2218) 13 U/L ALT (test code = 2219) 15 U/L LIPID [id number] 00:00:00 Test Item Value Reference Range Interpretation Comments CHOLESTEROL (test code = 2210) 186 MG/DL TRIGLYCERIDES (test code = 2232) 142 MG/DL HDL CHOLESTEROL (test code = 2220) 58 MG/DL CALC LDL CHOL (test code = 2237) 104 MG/DL RISK RATIO LDL/HDL (test code = 1.79 RATIO 2238) HEMOGLOBIN [id number] 00:00:00 Test Item Value Reference Range Interpretation Comments HEMOGLOBIN A1c (test code = 99382) 10.6 % HEMOGLOBIN [id number] 00:00:00 Test Item Value Reference Range Interpretation Comments HEMOGLOBIN A1c (test code = 40321) 10.6 % COMPREHENSIVE METABOLIC [id number] 00:00:00 Test Item Value Reference Range Interpretation Comments GLUCOSE (test code = 2217) 251 MG/DL BUN (test code = 2208) 7 MG/DL CREATININE (test code = 2214) 0.42 MG/DL eGFR AMER. (test code 130 ML/MIN/1.73 = 93106) eGFR NON- AMER. (test 112 ML/MIN/1.73 code = 20328) CALC BUN/CREAT (test code = 17 RATIO 2235) SODIUM (test code = 2231) 140 MEQ/L POTASSIUM (test code = 2228) 4.4 MEQ/L CHLORIDE (test code = 2215) 98 MEQ/L CARBON DIOXIDE (test code = 27 MEQ/L 2205) CALCIUM (test code = 2209) 9.7 MG/DL PROTEIN, TOTAL (test code = 7.0 G/DL 2228) ALBUMIN (test code = 2201) 4.6 G/DL CALC GLOBULIN (test code = 2.4 G/DL 2240) CALC A/G RATIO (test code = 1.9 RATIO 2234) BILIRUBIN, TOTAL (test code = 0.3 MG/DL 2206) ALKALINE PHOSPHATASE (test 95 U/L code = 2204) AST (test code = 2218) 13 U/L ALT (test code = 2219) 15 U/L COMPREHENSIVE METABOLIC [id number] 00:00:00 Test Item Value Reference Range Interpretation Comments GLUCOSE (test code = 2217) 282 MG/DL BUN (test code = 2208) 8 MG/DL CREATININE (test code = 2214) 0.43 MG/DL eGFR AMER. (test code 129 ML/MIN/1.73 = 20091) eGFR NON- AMER. (test 111 ML/MIN/1.73 code = 08807) CALC BUN/CREAT (test code = 19 RATIO 2235) SODIUM (test code = 2231) 140 MEQ/L POTASSIUM (test code = 2228) 4.1 MEQ/L CHLORIDE (test code = 2215) 99 MEQ/L CARBON DIOXIDE (test code = 27 MEQ/L 220) CALCIUM (test code = 2209) 10.1 MG/DL PROTEIN, TOTAL (test code = 7.2 G/DL 2228) ALBUMIN (test code = 2201) 4.7 G/DL CALC GLOBULIN (test code = 2.5 G/DL 2240) CALC A/G RATIO (test code = 1.9 RATIO 2234) BILIRUBIN, TOTAL (test code = 0.5 MG/DL 2207) ALKALINE PHOSPHATASE (test 99 U/L code = 2204) AST (test code = 2218) 13 U/L ALT (test code = 2219) 14 U/L HEMOGLOBIN [id number] 00:00:00 Test Item Value Reference Range Interpretation Comments HEMOGLOBIN A1c (test code = 80191) 13.4 % HEMOGLOBIN [id number] 00:00:00 Test Item Value Reference Range Interpretation Comments HEMOGLOBIN A1c (test code = 67252) 13.4 % HEMOGLOBIN [id number] 00:00:00 Test Item Value Reference Range Interpretation Comments HEMOGLOBIN A1c (test code = 77116) 13.4 % MICROALBUMIN/CREATININE, RANDOM AND [id number] 00:00:00 Test Item Value Reference Range Interpretation Comments CREATININE, URINE, CONC. (test 148.4 MG/DL code = 2072) ALBUMIN, URINE, RANDOM (test code 9.6 MG/DL = 27260) CALC ALBUMIN/CREAT, RND (test 65 MG/G code = 00081) MICROALBUMIN/CREATININE, RANDOM AND [id number] 00:00:00 Test Item Value Reference Range Interpretation Comments CREATININE, URINE, CONC. (test 148.4 MG/DL code = 2072) ALBUMIN, URINE, RANDOM (test code 9.6 MG/DL = 26873) CALC ALBUMIN/CREAT, RND (test 65 MG/G code = 41221) LIPID [id number] 00:00:00 Test Item Value Reference Range Interpretation Comments CHOLESTEROL (test code = 2210) 281 MG/DL TRIGLYCERIDES (test code = 2232) 142 MG/DL HDL CHOLESTEROL (test code = 2220) 72 MG/DL CALC LDL CHOL (test code = 2237) 181 MG/DL RISK RATIO LDL/HDL (test code = 2.51 RATIO 2238) LIPID [id number] 00:00:00 Test Item Value Reference Range Interpretation Comments CHOLESTEROL (test code = 2210) 281 MG/DL TRIGLYCERIDES (test code = 2232) 142 MG/DL HDL CHOLESTEROL (test code = 2220) 72 MG/DL CALC LDL CHOL (test code = 2237) 181 MG/DL RISK RATIO LDL/HDL (test code = 2.51 RATIO 2238) COMPREHENSIVE METABOLIC [id number] 00:00:00 Test Item Value Reference Range Interpretation Comments GLUCOSE (test code = 2217) 282 MG/DL BUN (test code = 2208) 8 MG/DL CREATININE (test code = 2214) 0.43 MG/DL eGFR AMER. (test code 129 ML/MIN/1.73 = 51464) eGFR NON- AMER. (test 111 ML/MIN/1.73 code = 17398) CALC BUN/CREAT (test code = 19 RATIO 2235) SODIUM (test code = 2231) 140 MEQ/L POTASSIUM (test code = 2228) 4.1 MEQ/L CHLORIDE (test code = 2215) 99 MEQ/L CARBON DIOXIDE (test code = 27 MEQ/L 2205) CALCIUM (test code = 2209) 10.1 MG/DL PROTEIN, TOTAL (test code = 7.2 G/DL 2228) ALBUMIN (test code = 220) 4.7 G/DL CALC GLOBULIN (test code = 2.5 G/DL 2239) CALC A/G RATIO (test code = 1.9 RATIO 2233) BILIRUBIN, TOTAL (test code = 0.5 MG/DL 2206) ALKALINE PHOSPHATASE (test 99 U/L code = 2204) AST (test code = 2218) 13 U/L ALT (test code = 2219) 14 U/L HEMOGLOBIN [id number] 00:00:00 Test Item Value Reference Range Interpretation Comments HEMOGLOBIN A1c (test code = 42344) 13.4 % HEMOGLOBIN [id number] 00:00:00 Test Item Value Reference Range Interpretation Comments HEMOGLOBIN A1c (test code = 79729) 13.4 % MICROALBUMIN/CREATININE, RANDOM AND [id number] 00:00:00 Test Item Value Reference Range Interpretation Comments CREATININE, URINE, CONC. (test 148.4 MG/DL code = 2072) ALBUMIN, URINE, RANDOM (test code 9.6 MG/DL = 43431) CALC ALBUMIN/CREAT, RND (test 65 MG/G code = 03362) LIPID [id number] 00:00:00 Test Item Value Reference Range Interpretation Comments CHOLESTEROL (test code = 2210) 281 MG/DL TRIGLYCERIDES (test code = 2232) 142 MG/DL HDL CHOLESTEROL (test code = 2220) 72 MG/DL CALC LDL CHOL (test code = 2237) 181 MG/DL RISK RATIO LDL/HDL (test code = 2.51 RATIO 2238) COMPREHENSIVE METABOLIC [id number] 00:00:00 Test Item Value Reference Range Interpretation Comments GLUCOSE (test code = 2217) 282 MG/DL BUN (test code = 2208) 8 MG/DL CREATININE (test code = 2214) 0.43 MG/DL eGFR AMER. (test code 129 ML/MIN/1.73 = 02271) eGFR NON- AMER. (test 111 ML/MIN/1.73 code = 02354) CALC BUN/CREAT (test code = 19 RATIO 2235) SODIUM (test code = 2231) 140 MEQ/L POTASSIUM (test code = 2228) 4.1 MEQ/L CHLORIDE (test code = 2215) 99 MEQ/L CARBON DIOXIDE (test code = 27 MEQ/L 2205) CALCIUM (test code = 2209) 10.1 MG/DL PROTEIN, TOTAL (test code = 7.2 G/DL 2228) ALBUMIN (test code = 2201) 4.7 G/DL CALC GLOBULIN (test code = 2.5 G/DL 224) CALC A/G RATIO (test code = 1.9 RATIO 2234) BILIRUBIN, TOTAL (test code = 0.5 MG/DL 2206) ALKALINE PHOSPHATASE (test 99 U/L code = 2204) AST (test code = 2218) 13 U/L ALT (test code = 2219) 14 U/L COMPREHENSIVE METABOLIC [id number] 00:00:00 Test Item Value Reference Range Interpretation Comments GLUCOSE (test code = 2217) 210 MG/DL BUN (test code = 2208) 12 MG/DL CREATININE (test code = 2214) 0.63 MG/DL eGFR AMER. (test code 117 ML/MIN/1.73 = 45906) eGFR NON- AMER. (test 101 ML/MIN/1.73 code = 75067) CALC BUN/CREAT (test code = 19 RATIO 2235) SODIUM (test code = 2231) 141 MEQ/L POTASSIUM (test code = 2228) 4.3 MEQ/L CHLORIDE (test code = 2215) 101 MEQ/L CARBON DIOXIDE (test code = 23 MEQ/L 220) CALCIUM (test code = 2209) 9.3 MG/DL PROTEIN, TOTAL (test code = 7.1 G/DL 2229) ALBUMIN (test code = 2201) 4.5 G/DL CALC GLOBULIN (test code = 2.6 G/DL 2240) CALC A/G RATIO (test code = 1.7 RATIO 2234) BILIRUBIN, TOTAL (test code = 0.3 MG/DL 220) ALKALINE PHOSPHATASE (test 96 U/L code = 2204) AST (test code = 2218) 27 U/L ALT (test code = 2219) 38 U/L COMPREHENSIVE METABOLIC [id number] 00:00:00 Test Item Value Reference Range Interpretation Comments GLUCOSE (test code = 2217) 210 MG/DL BUN (test code = 2208) 12 MG/DL CREATININE (test code = 2214) 0.63 MG/DL eGFR AMER. (test code 117 ML/MIN/1.73 = 76846) eGFR NON- AMER. (test 101 ML/MIN/1.73 code = 88309) CALC BUN/CREAT (test code = 19 RATIO 2235) SODIUM (test code = 2231) 141 MEQ/L POTASSIUM (test code = 2228) 4.3 MEQ/L CHLORIDE (test code = 2215) 101 MEQ/L CARBON DIOXIDE (test code = 23 MEQ/L 2206) CALCIUM (test code = 2209) 9.3 MG/DL PROTEIN, TOTAL (test code = 7.1 G/DL 2228) ALBUMIN (test code = 2201) 4.5 G/DL CALC GLOBULIN (test code = 2.6 G/DL 2240) CALC A/G RATIO (test code = 1.7 RATIO 2234) BILIRUBIN, TOTAL (test code = 0.3 MG/DL 2206) ALKALINE PHOSPHATASE (test 96 U/L code = 2204) AST (test code = 2218) 27 U/L ALT (test code = 2219) 38 U/L LIPID [id number] 00:00:00 Test Item Value Reference Range Interpretation Comments CHOLESTEROL (test code = 2210) 249 MG/DL TRIGLYCERIDES (test code = 2232) 199 MG/DL HDL CHOLESTEROL (test code = 2220) 49 MG/DL CALC LDL CHOL (test code = 2237) 160 MG/DL RISK RATIO LDL/HDL (test code = 3.27 RATIO 2238) LIPID [id number] 00:00:00 Test Item Value Reference Range Interpretation Comments CHOLESTEROL (test code = 2210) 249 MG/DL TRIGLYCERIDES (test code = 2232) 199 MG/DL HDL CHOLESTEROL (test code = 2220) 49 MG/DL CALC LDL CHOL (test code = 2237) 160 MG/DL RISK RATIO LDL/HDL (test code = 3.27 RATIO 2238) CBC W/AUTO [id number] 00:00:00 Test Item Value Reference Range Interpretation Comments WBC (test code = 1001) 6.8 K/UL RBC (test code = 1002) 4.63 M/UL HEMOGLOBIN (test code = 1003) 13.8 G/DL HEMATOCRIT (test code = 1004) 40.7 % MCV (test code = 1005) 87.9 fL MCH (test code = 1006) 29.8 PG MCHC (test code = 1007) 33.9 G/DL RDW (test code = 1038) 13.6 % NEUTROPHILS (test code = 1008) 45.2 % LYMPHOCYTES (test code = 1010) 43.4 % MONOCYTES (test code = 1011) 5.5 % EOSINOPHILS (test code = 1012) 5.3 % BASOPHILS (test code = 1013) 0.6 % PLATELET COUNT (test code = 1015) 295 K/UL CBC W/AUTO [id number] 00:00:00 Test Item Value Reference Range Interpretation Comments WBC (test code = 1001) 6.8 K/UL RBC (test code = 1002) 4.63 M/UL HEMOGLOBIN (test code = 1003) 13.8 G/DL HEMATOCRIT (test code = 1004) 40.7 % MCV (test code = 1005) 87.9 fL MCH (test code = 1006) 29.8 PG MCHC (test code = 1007) 33.9 G/DL RDW (test code = 1038) 13.6 % NEUTROPHILS (test code = 1008) 45.2 % LYMPHOCYTES (test code = 1010) 43.4 % MONOCYTES (test code = 1011) 5.5 % EOSINOPHILS (test code = 1012) 5.3 % BASOPHILS (test code = 1013) 0.6 % PLATELET COUNT (test code = 1015) 295 K/UL CBC W/AUTO [id number] 00:00:00 Test Item Value Reference Range Interpretation Comments WBC (test code = 1001) 6.8 K/UL RBC (test code = 1002) 4.63 M/UL HEMOGLOBIN (test code = 1003) 13.8 G/DL HEMATOCRIT (test code = 1004) 40.7 % MCV (test code = 1005) 87.9 fL MCH (test code = 1006) 29.8 PG MCHC (test code = 1007) 33.9 G/DL RDW (test code = 1038) 13.6 % NEUTROPHILS (test code = 1008) 45.2 % LYMPHOCYTES (test code = 1010) 43.4 % MONOCYTES (test code = 1011) 5.5 % EOSINOPHILS (test code = 1012) 5.3 % BASOPHILS (test code = 1013) 0.6 % PLATELET COUNT (test code = 1015) 295 K/UL HEMOGLOBIN [id number] 00:00:00 Test Item Value Reference Range Interpretation Comments HEMOGLOBIN A1c (test code = 60810) 8.9 % HEMOGLOBIN [id number] 00:00:00 Test Item Value Reference Range Interpretation Comments HEMOGLOBIN A1c (test code = 24926) 8.9 % HEMOGLOBIN [id number] 00:00:00 Test Item Value Reference Range Interpretation Comments HEMOGLOBIN A1c (test code = 15658) 8.9 % [id number] 00:00:00 Test Item Value Reference Range Interpretation Comments TSH (test code = 2821) 1.5 UIU/ML [id number] 00:00:00 Test Item Value Reference Range Interpretation Comments TSH (test code = 2821) 1.5 UIU/ML [id number] 00:00:00 Test Item Value Reference Range Interpretation Comments TSH (test code = 2821) 1.5 UIU/ML COMPREHENSIVE METABOLIC [id number] 00:00:00 Test Item Value Reference Range Interpretation Comments GLUCOSE (test code = 2217) 210 MG/DL BUN (test code = 2208) 12 MG/DL CREATININE (test code = 2214) 0.63 MG/DL eGFR AMER. (test code 117 ML/MIN/1.73 = 28406) eGFR NON- AMER. (test 101 ML/MIN/1.73 code = 01439) CALC BUN/CREAT (test code = 19 RATIO 2235) SODIUM (test code = 2231) 141 MEQ/L POTASSIUM (test code = 2228) 4.3 MEQ/L CHLORIDE (test code = 2215) 101 MEQ/L CARBON DIOXIDE (test code = 23 MEQ/L 2205) CALCIUM (test code = 2209) 9.3 MG/DL PROTEIN, TOTAL (test code = 7.1 G/DL 2228) ALBUMIN (test code = 2201) 4.5 G/DL CALC GLOBULIN (test code = 2.6 G/DL 2240) CALC A/G RATIO (test code = 1.7 RATIO 2234) BILIRUBIN, TOTAL (test code = 0.3 MG/DL 2206) ALKALINE PHOSPHATASE (test 96 U/L code = 2204) AST (test code = 2218) 27 U/L ALT (test code = 2219) 38 U/L LIPID [id number] 00:00:00 Test Item Value Reference Range Interpretation Comments CHOLESTEROL (test code = 2210) 249 MG/DL TRIGLYCERIDES (test code = 2232) 199 MG/DL HDL CHOLESTEROL (test code = 2220) 49 MG/DL CALC LDL CHOL (test code = 2237) 160 MG/DL RISK RATIO LDL/HDL (test code = 3.27 RATIO 2238) CBC W/AUTO [id number] 00:00:00 Test Item Value Reference Range Interpretation Comments WBC (test code = 1001) 6.8 K/UL RBC (test code = 1002) 4.63 M/UL HEMOGLOBIN (test code = 1003) 13.8 G/DL HEMATOCRIT (test code = 1004) 40.7 % MCV (test code = 1005) 87.9 fL MCH (test code = 1006) 29.8 PG MCHC (test code = 1007) 33.9 G/DL RDW (test code = 1038) 13.6 % NEUTROPHILS (test code = 1008) 45.2 % LYMPHOCYTES (test code = 1010) 43.4 % MONOCYTES (test code = 1011) 5.5 % EOSINOPHILS (test code = 1012) 5.3 % BASOPHILS (test code = 1013) 0.6 % PLATELET COUNT (test code = 1015) 295 K/UL CBC W/AUTO [id number] 00:00:00 Test Item Value Reference Range Interpretation Comments WBC (test code = 1001) 6.8 K/UL RBC (test code = 1002) 4.63 M/UL HEMOGLOBIN (test code = 1003) 13.8 G/DL HEMATOCRIT (test code = 1004) 40.7 % MCV (test code = 1005) 87.9 fL MCH (test code = 1006) 29.8 PG MCHC (test code = 1007) 33.9 G/DL RDW (test code = 1038) 13.6 % NEUTROPHILS (test code = 1008) 45.2 % LYMPHOCYTES (test code = 1010) 43.4 % MONOCYTES (test code = 1011) 5.5 % EOSINOPHILS (test code = 1012) 5.3 % BASOPHILS (test code = 1013) 0.6 % PLATELET COUNT (test code = 1015) 295 K/UL HEMOGLOBIN [id number] 00:00:00 Test Item Value Reference Range Interpretation Comments HEMOGLOBIN A1c (test code = 61923) 8.9 % HEMOGLOBIN [id number] 00:00:00 Test Item Value Reference Range Interpretation Comments HEMOGLOBIN A1c (test code = 30401) 8.9 % [id number] 00:00:00 Test Item Value Reference Range Interpretation Comments TSH (test code = 2821) 1.5 UIU/ML [id number] 00:00:00 Test Item Value Reference Range Interpretation Comments TSH (test code = 2821) 1.5 UIU/ML COMPREHENSIVE METABOLIC [id number] 00:00:00 Test Item Value Reference Range Interpretation Comments GLUCOSE (test code = 2217) 138 MG/DL BUN (test code = 2208) 9 MG/DL CREATININE (test code = 2214) 0.61 MG/DL eGFR AMER. (test code 118 ML/MIN/1.73 = 65453) eGFR NON- AMER. (test 102 ML/MIN/1.73 code = 83468) CALCULATED BUN/CREAT (test 15 RATIO code = 2235) SODIUM (test code = 2231) 138 MEQ/L POTASSIUM (test code = 2228) 4.4 MEQ/L CHLORIDE (test code = 2215) 102 MEQ/L CARBON DIOXIDE (test code = 25 MEQ/L 6) CALCIUM (test code = 2209) 9.8 MG/DL PROTEIN, TOTAL (test code = 7.5 G/DL 2228) ALBUMIN (test code = 2201) 4.5 G/DL CALCULATED GLOBULIN (test 3.0 G/DL code = 2240) CALCULATED A/G RATIO (test 1.5 RATIO code = 2234) BILIRUBIN, TOTAL (test code = 0.5 MG/DL 7) ALKALINE PHOSPHATASE (test 80 U/L code = 2204) SGOT (AST) (test code = 2218) 25 U/L SGPT (ALT) (test code = 2219) 29 U/L HEMOGLOBIN [id number] 00:00:00 Test Item Value Reference Range Interpretation Comments HEMOGLOBIN A1c (test code = 68133) 8.4 % HEMOGLOBIN [id number] 00:00:00 Test Item Value Reference Range Interpretation Comments HEMOGLOBIN A1c (test code = 69367) 8.4 % HEMOGLOBIN [id number] 00:00:00 Test Item Value Reference Range Interpretation Comments HEMOGLOBIN A1c (test code = 24416) 8.4 % LIPID [id number] 00:00:00 Test Item Value Reference Range Interpretation Comments CHOLESTEROL (test code = 2210) 181 MG/DL TRIGLYCERIDES (test code = 2232) 182 MG/DL HDL CHOLESTEROL (test code = 2220) 48 MG/DL CALCULATED LDL CHOL (test code = 97 MG/DL 2237) RISK RATIO LDL/HDL (test code = 2.01 RATIO 2238) LIPID [id number] 00:00:00 Test Item Value Reference Range Interpretation Comments CHOLESTEROL (test code = 2210) 181 MG/DL TRIGLYCERIDES (test code = 2232) 182 MG/DL HDL CHOLESTEROL (test code = 2220) 48 MG/DL CALCULATED LDL CHOL (test code = 97 MG/DL 2237) RISK RATIO LDL/HDL (test code = 2.01 RATIO 2238) COMPREHENSIVE METABOLIC [id number] 00:00:00 Test Item Value Reference Range Interpretation Comments GLUCOSE (test code = 2217) 138 MG/DL BUN (test code = 2208) 9 MG/DL CREATININE (test code = 2214) 0.61 MG/DL eGFR AMER. (test code 118 ML/MIN/1.73 = 80534) eGFR NON- AMER. (test 102 ML/MIN/1.73 code = 45310) CALCULATED BUN/CREAT (test 15 RATIO code = 2235) SODIUM (test code = 2231) 138 MEQ/L POTASSIUM (test code = 2228) 4.4 MEQ/L CHLORIDE (test code = 2215) 102 MEQ/L CARBON DIOXIDE (test code = 25 MEQ/L 2205) CALCIUM (test code = 2209) 9.8 MG/DL PROTEIN, TOTAL (test code = 7.5 G/DL 2228) ALBUMIN (test code = 2201) 4.5 G/DL CALCULATED GLOBULIN (test 3.0 G/DL code = 2240) CALCULATED A/G RATIO (test 1.5 RATIO code = 2234) BILIRUBIN, TOTAL (test code = 0.5 MG/DL 2206) ALKALINE PHOSPHATASE (test 80 U/L code = 2204) SGOT (AST) (test code = 2218) 25 U/L SGPT (ALT) (test code = 2219) 29 U/L HEMOGLOBIN [id number] 00:00:00 Test Item Value Reference Range Interpretation Comments HEMOGLOBIN A1c (test code = 14657) 8.4 % HEMOGLOBIN [id number] 00:00:00 Test Item Value Reference Range Interpretation Comments HEMOGLOBIN A1c (test code = 76027) 8.4 % LIPID [id number] 00:00:00 Test Item Value Reference Range Interpretation Comments CHOLESTEROL (test code = 2210) 181 MG/DL TRIGLYCERIDES (test code = 2232) 182 MG/DL HDL CHOLESTEROL (test code = 2220) 48 MG/DL CALCULATED LDL CHOL (test code = 97 MG/DL 2236) RISK RATIO LDL/HDL (test code = 2.01 RATIO 8) COMPREHENSIVE METABOLIC [id number] 00:00:00 Test Item Value Reference Range Interpretation Comments GLUCOSE (test code = 2217) 138 MG/DL BUN (test code = 2208) 9 MG/DL CREATININE (test code = 2214) 0.61 MG/DL eGFR AMER. (test code 118 ML/MIN/1.73 = 49191) eGFR NON- AMER. (test 102 ML/MIN/1.73 code = 67218) CALCULATED BUN/CREAT (test 15 RATIO code = 2235) SODIUM (test code = 2231) 138 MEQ/L POTASSIUM (test code = 2228) 4.4 MEQ/L CHLORIDE (test code = 2215) 102 MEQ/L CARBON DIOXIDE (test code = 25 MEQ/L 2205) CALCIUM (test code = 2209) 9.8 MG/DL PROTEIN, TOTAL (test code = 7.5 G/DL 2229) ALBUMIN (test code = 2201) 4.5 G/DL CALCULATED GLOBULIN (test 3.0 G/DL code = 2240) CALCULATED A/G RATIO (test 1.5 RATIO code = 2234) BILIRUBIN, TOTAL (test code = 0.5 MG/DL 2207) ALKALINE PHOSPHATASE (test 80 U/L code = 2204) SGOT (AST) (test code = 2218) 25 U/L SGPT (ALT) (test code = 2219) 29 U/L ACUTE HEPATITIS [id number] 00:00:00 Test Item Value Reference Range Interpretation Comments HEPATITIS A IgM (test code = NON-REACTIVE 21384) HEPATITIS B CORE IgM (test code NON-REACTIVE = 4644) HEPATITIS B SURF AG (test code = NON-REACTIVE 2739) HEPATITIS C ANTIBODY (test code NON-REACTIVE = 4675) INTERPRETATION HEPATITIS A: (NOTE) (test code = 2552) INTERPRETATION HEPATITIS B: (NOTE) (test code = 01385) INTERPRETATION HEPATITIS C: (NOTE) (test code = 34186) ACUTE HEPATITIS [id number] 00:00:00 Test Item Value Reference Range Interpretation Comments HEPATITIS A IgM (test code = NON-REACTIVE 18105) HEPATITIS B CORE IgM (test code NON-REACTIVE = 4644) HEPATITIS B SURF AG (test code = NON-REACTIVE 2739) HEPATITIS C ANTIBODY (test code NON-REACTIVE = 4675) INTERPRETATION HEPATITIS A: (NOTE) (test code = 2552) INTERPRETATION HEPATITIS B: (NOTE) (test code = 20863) INTERPRETATION HEPATITIS C: (NOTE) (test code = 15381) ACUTE HEPATITIS [id number] 00:00:00 Test Item Value Reference Range Interpretation Comments HEPATITIS A IgM (test code = NON-REACTIVE 60611) HEPATITIS B CORE IgM (test code NON-REACTIVE = 4644) HEPATITIS B SURF AG (test code = NON-REACTIVE 2739) HEPATITIS C ANTIBODY (test code NON-REACTIVE = 4675) INTERPRETATION HEPATITIS A: (NOTE) (test code = 2552) INTERPRETATION HEPATITIS B: (NOTE) (test code = 12495) INTERPRETATION HEPATITIS C: (NOTE) (test code = 95016) COMPREHENSIVE METABOLIC [id number] 00:00:00 Test Item Value Reference Range Interpretation Comments GLUCOSE (test code = 2217) 281 MG/DL BUN (test code = 2208) 11 MG/DL CREATININE (test code = 2214) 0.5 MG/DL eGFR AMER. (test code 155 ML/MIN/1.73 = 35695) eGFR NON- AMER. (test 128 ML/MIN/1.73 code = 32921) CALCULATED BUN/CREAT (test 22 RATIO code = 2235) SODIUM (test code = 2231) 137 MEQ/L POTASSIUM (test code = 2228) 4.1 MEQ/L CHLORIDE (test code = 2215) 102 MEQ/L CARBON DIOXIDE (test code = 27 MEQ/L 2205) CALCIUM (test code = 2209) 9.8 MG/DL PROTEIN, TOTAL (test code = 7.7 G/DL 2228) ALBUMIN (test code = 2201) 4.6 G/DL CALCULATED GLOBULIN (test 3.1 G/DL code = 2240) CALCULATED A/G RATIO (test 1.5 RATIO code = 2234) BILIRUBIN, TOTAL (test code = 0.6 MG/DL 2206) ALKALINE PHOSPHATASE (test 95 U/L code = 2204) SGOT (AST) (test code = 2218) 56 U/L SGPT (ALT) (test code = 2219) 58 U/L LIPID [id number] 00:00:00 Test Item Value Reference Range Interpretation Comments CHOLESTEROL (test code = 2210) 243 MG/DL TRIGLYCERIDES (test code = 2232) 169 MG/DL HDL CHOLESTEROL (test code = 2220) 50 MG/DL CALCULATED LDL CHOL (test code = 159 MG/DL 2237) RISK RATIO LDL/HDL (test code = 3.18 RATIO 2238) LIPID [id number] 00:00:00 Test Item Value Reference Range Interpretation Comments CHOLESTEROL (test code = 2210) 243 MG/DL TRIGLYCERIDES (test code = 2232) 169 MG/DL HDL CHOLESTEROL (test code = 2220) 50 MG/DL CALCULATED LDL CHOL (test code = 159 MG/DL 2237) RISK RATIO LDL/HDL (test code = 3.18 RATIO 2238) HEMOGLOBIN [id number] 00:00:00 Test Item Value Reference Range Interpretation Comments HEMOGLOBIN A1c (test code = 24709) 9.5 % HEMOGLOBIN [id number] 00:00:00 Test Item Value Reference Range Interpretation Comments HEMOGLOBIN A1c (test code = 80534) 9.5 % HEMOGLOBIN [id number] 00:00:00 Test Item Value Reference Range Interpretation Comments HEMOGLOBIN A1c (test code = 14800) 9.5 % COMPREHENSIVE METABOLIC [id number] 00:00:00 Test Item Value Reference Range Interpretation Comments GLUCOSE (test code = 2217) 281 MG/DL BUN (test code = 2208) 11 MG/DL CREATININE (test code = 2214) 0.5 MG/DL eGFR AMER. (test code 155 ML/MIN/1.73 = 27164) eGFR NON- AMER. (test 128 ML/MIN/1.73 code = 98195) CALCULATED BUN/CREAT (test 22 RATIO code = 2235) SODIUM (test code = 2231) 137 MEQ/L POTASSIUM (test code = 2228) 4.1 MEQ/L CHLORIDE (test code = 2215) 102 MEQ/L CARBON DIOXIDE (test code = 27 MEQ/L 2205) CALCIUM (test code = 2209) 9.8 MG/DL PROTEIN, TOTAL (test code = 7.7 G/DL 2228) ALBUMIN (test code = 2201) 4.6 G/DL CALCULATED GLOBULIN (test 3.1 G/DL code = 2240) CALCULATED A/G RATIO (test 1.5 RATIO code = 2234) BILIRUBIN, TOTAL (test code = 0.6 MG/DL 2206) ALKALINE PHOSPHATASE (test 95 U/L code = 2204) SGOT (AST) (test code = 2218) 56 U/L SGPT (ALT) (test code = 2219) 58 U/L LIPID [id number] 00:00:00 Test Item Value Reference Range Interpretation Comments CHOLESTEROL (test code = 2210) 243 MG/DL TRIGLYCERIDES (test code = 2232) 169 MG/DL HDL CHOLESTEROL (test code = 2220) 50 MG/DL CALCULATED LDL CHOL (test code = 159 MG/DL 2236) RISK RATIO LDL/HDL (test code = 3.18 RATIO 8) HEMOGLOBIN [id number] 00:00:00 Test Item Value Reference Range Interpretation Comments HEMOGLOBIN A1c (test code = 86535) 9.5 % HEMOGLOBIN [id number] 00:00:00 Test Item Value Reference Range Interpretation Comments HEMOGLOBIN A1c (test code = 64933) 9.5 % COMPREHENSIVE METABOLIC [id number] 00:00:00 Test Item Value Reference Range Interpretation Comments GLUCOSE (test code = 2217) 281 MG/DL BUN (test code = 2208) 11 MG/DL CREATININE (test code = 2214) 0.5 MG/DL eGFR AMER. (test code 155 ML/MIN/1.73 = 29505) eGFR NON- AMER. (test 128 ML/MIN/1.73 code = 97409) CALCULATED BUN/CREAT (test 22 RATIO code = 2235) SODIUM (test code = 2231) 137 MEQ/L POTASSIUM (test code = 2228) 4.1 MEQ/L CHLORIDE (test code = 2215) 102 MEQ/L CARBON DIOXIDE (test code = 27 MEQ/L 2205) CALCIUM (test code = 220) 9.8 MG/DL PROTEIN, TOTAL (test code = 7.7 G/DL 2228) ALBUMIN (test code = 220) 4.6 G/DL CALCULATED GLOBULIN (test 3.1 G/DL code = 2240) CALCULATED A/G RATIO (test 1.5 RATIO code = 2234) BILIRUBIN, TOTAL (test code = 0.6 MG/DL 2206) ALKALINE PHOSPHATASE (test 95 U/L code = 2204) SGOT (AST) (test code = 2218) 56 U/L SGPT (ALT) (test code = 2219) 58 U/L
[2022-08-03 14:43] LABS: Absolute Lymphocytes (CBC) 2.3 K/uL (0.7-4.9); Hematocrit 42.8 % (36.0-45.0); Lymphocytes % 31.3 % (15.3-44.8); MCV 85.5 fL (80-100); MPV 6.5 fL (7.6-11.3); RBC Red Blood Cell Count 5.01 M/uL (3.86-4.86)
[2022-08-03 15:00] LABS: Potassium 3.8 mmol/L (3.5-5.1); Troponin High Sensitivity 15.2 pg/mL (<58.9)
[2022-08-03 15:22] LABS: SARS-CoV-2 Antigen Rapid Res Negative (Negative)
--- NOTE | 2022-08-03 15:55 | RAD REPORT ---
EXAM DESCRIPTION: CT - Chest For Pe Angio - 08/03/2022 3:20 pm CLINICAL HISTORY: Chest pain COMPARISON: None. TECHNIQUE: Dynamically enhanced axial 3 mm thick images of the chest were obtained during administra tion of <100> mL Isovue 370 IV contrast. Coronal and oblique reconstruction images were generated and reviewed. Exam utilizes a protocol for optimal evaluation of pulmonary arterial tree. Maximum intensity projections 3D imaging was utilized All CT scans are performed using dose optimization technique as appropriate and may include automated exposure control or mA/KV adjustment according to patient size. FINDINGS: A pulmonary embolus is not seen. A thoracic aortic aneurysm is not noted. A pleural effusion is not seen. A pericardial effusion is not seen. A lung consolidation is not present. IMPRESSION: Negative for a pulmonary embolism.
--- NOTE | 2022-08-03 16:03 | EDPHYS ---
Physician Documentation [facility] Name: Samantha Thomas Age: 61 yrs Sex: Female : 1960 Arrival Date: 08/03/2022 Time: 13:38 Bed 6 Private MD: Dorain Mariano HPI: 08/03 14:02 This 61 yrs old Female presents to ER via Unassigned with complaints of snw Abnormal Lab Results. 14:02 The patient or guardian reports chest pain that is located primarily in the epigastric snw area. Onset: gradually, 2 day(s) ago, and became persistent. The pain does not radiate. Associated signs and symptoms: Pertinent positives:. The chest pain is described as aching. Duration: The patient or guardian reports a single episode, that is now resolved. Severity of pain: At its worst the pain was moderate. The patient has experienced a previous episode. The patient has been recently seen by a physician: with similar presenting complaints, and apparently given a diagnosis of elevated troponin. 15:49 pt told in [place] one month ago that she had a PA and would need a stent. snw Historical: - Allergies: 14:13 No Known Allergies; bm7 - Home Meds: 14:13 glyburide 5 mg Oral tab 2 tabs 2 times per day for Type 2 Diabetes Mellitus [Active]; bm7 metformin 850 mg Oral tab 1 tab 3 times per day [Active]; - PMHx: 14:13 Diabetes - IDDM; Hyperlipidemia; Hypertension; bm7 - PSHx: 14:13 None; bm7 - Immunization history:: Adult Immunizations up to date, Client reports receiving the 2nd dose of the Covid vaccine, Client reports receiving the 1st dose of the Covid vaccine. - Social history:: Smoking status: Patient denies any tobacco usage or history of. ROS: 14:02 Eyes: Negative for injury, pain, redness, and discharge, ENT: Negative for injury, snw pain, and discharge, Neck: Negative for injury, pain, and swelling. 14:02 Abdomen/GI: Negative for abdominal pain, nausea, vomiting, diarrhea, and constipation, Back: Negative for injury and pain, : Negative for injury, bleeding, discharge, and swelling, MS/Extremity: Negative for injury and deformity, Skin: Negative for injury, rash, and discoloration. 14:02 Constitutional: Positive for body aches, malaise. 14:02 Cardiovascular: Positive for chest pain. 14:02 Cardiovascular: Positive for edema, palpitations. 14:02 Respiratory: Positive for shortness of breath, on exertion. 14:02 Neuro: 14:02 Neuro: Positive for headache. Exam: 14:02 Constitutional: This is a well developed, well nourished patient who is awake, alert, snw and in no acute distress. Head/Face: Normocephalic, atraumatic. Eyes: Pupils equal round and reactive to light, extra-ocular motions intact. Lids and lashes normal. Conjunctiva and sclera are non-icteric and not injected. Cornea within normal limits. Periorbital areas with no swelling, redness, or edema. Back: No spinal tenderness. No costovertebral tenderness. Full range of motion. Skin: Warm, dry with normal turgor. Normal color with no rashes, no lesions, and no evidence of cellulitis. MS/ Extremity: Pulses equal, no cyanosis. Neurovascular intact. Full, normal range of motion. Neuro: Awake and alert, GCS 15, oriented to person, place, time, and situation. Cranial nerves II-XII grossly intact. Motor strength 5/5 in all extremities. Sensory grossly intact. Cerebellar exam normal. Normal gait. Psych: Awake, alert, with orientation to person, place and time. Behavior, mood, and affect are within normal limits. 14:02 ENT: Nares patent. No nasal discharge, no septal abnormalities noted. Tympanic membranes are normal and external auditory canals are clear. Oropharynx with no redness, swelling, or masses, exudates, or evidence of obstruction, uvula midline. Mucous membranes moist. Neck: Trachea midline, no thyromegaly or masses palpated, and no cervical lymphadenopathy. Supple, full range of motion without nuchal rigidity, or vertebral point tenderness. No Meningismus. Chest/axilla: Normal chest wall appearance and motion. Nontender with no deformity. No lesions are appreciated. 14:02 Respiratory: Lungs have equal breath sounds bilaterally, clear to auscultation and percussion. No rales, rhonchi or wheezes noted. No increased work of breathing, no retractions or nasal flaring. Abdomen/GI: Soft, non-tender, with normal bowel sounds. No distension or tympany. No guarding or rebound. No evidence of tenderness throughout. 14:02 Cardiovascular: Rate: normal, Rhythm: regular, Pulses: no pulse deficits are appreciated, Edema: 2+ edema to level of left foot, left toes, right foot and right toes. Vital Signs: 14:11 BP 157 / 81; Pulse 88; Resp 16; Temp 97.3(TE); Pulse Ox 100% on R/A; Weight 69.4 kg bm7 (R); Height 5 ft. 2 in. (157.48 cm); Pain 2/10; 15:59 BP 155 / 87; Pulse 92; Resp 15; Pulse Ox 100% ; ko1 16:29 BP 163 / 99; Pulse 93; Resp 19; Pulse Ox 97% on R/A; tp1 17:30 BP 156 / 93; Pulse 83; Resp 19; Pulse Ox 98% on R/A; tp1 18:13 BP 147 / 88; Pulse 84; Resp 19; Pulse Ox 99% on R/A; tp1 19:05 Pain 0/10; ke1 20:12 BP 139 / 88; Pulse 81; Resp 18; Pulse Ox 97% ; ll3 21:13 BP 132 / 80; Pulse 80; Resp 17; Pulse Ox 100% on R/A; Pain 0/10; ke1 14:11 Body Mass Index 27.98 (69.40 kg, 157.48 cm) bm7 MDM: 14:09 Patient medically screened. snw 15:47 HEART Score: History: Highly Suspicious (2), ECG: Non specific repolarization snw disturbance / LBTB / PM (1), Age: > 45 and < 65 years (1), Risk Factors: > or = 3 Risk factors for atherosclerotic disease (2), [Hypertension] [DM] [+ Family HX] [Obesity] Troponin: < or = 1 x Normal Limit (0), Total Score = 4. MARTA Risk Score: 1 - Three or more CAD risk factors, 1- Known CAD, 1 - Recent [<24hrs] Severe Angina, 1 - ST deviation >0.5mm, TOTAL SCORE = 4. Data reviewed: vital signs, nurses notes. Data interpreted: Pulse oximetry: on room air is 100 %. Interpretation: normal. Counseling: I had a detailed discussion with the patient and/or guardian regarding: the historical points, exam findings, and any diagnostic results supporting the discharge/admit diagnosis, the presence of at least one elevated blood pressure reading (>120/80) during this emergency department visit, lab results, radiology results, the need for further work-up and treatment in the hospital. Special discussion: Based on the history and exam findings, there is no indication for further emergent testing or inpatient evaluation. 17:17 Physician consultation: Moe Sherman MD was called at 17:17, regarding consult, snw patient's condition. 17:30 The patient was given aspirin in the Emergency Department. Physician consultation: snw after a discussion of the case, a recommendation for transfer for higher level of care is made. 18:24 Physician consultation: Dr France was called at 18:24, was contacted at 18:24, snw regarding regarding transfer, to [facility]. Dr. France kindly accepts pt in transfer. 18:56 Physician consultation: Dr Garcia was contacted at 18:57, regarding regarding transfer, snw Kindly agrees to accept pt in Transfer. 08/03 14:01 Order name: Basic Metabolic Panel; Complete Time: 15:06 snw 08/03 14:01 Order name: CBC with Diff; Complete Time: 14:50 snw 08/03 14:01 Order name: D-Dimer; Complete Time: 14:50 snw 08/03 14:01 Order name: Troponin HS; Complete Time: 15:06 w 08/03 14:01 Order name: XRAY Chest (1 view); Complete Time: 16:36 w 08/03 14:32 Order name: SARS RAPID; Complete Time: 15:29 snw 08/03 14:01 Order name: EKG; Complete Time: 14:02 snw 08/03 14:01 Order name: Cardiac monitoring; Complete Time: 14:34 snw 08/03 14:01 Order name: EKG - Nurse/Tech; Complete Time: 14:56 snw 08/03 14:01 Order name: IV Saline Lock; Complete Time: 14:34 snw 08/03 14:51 Order name: CT Chest For PE Angio; Complete Time: 16:00 snw 08/03 14:01 Order name: Labs collected and sent; Complete Time: 14:34 snw 08/03 14:01 Order name: O2 Per Protocol; Complete Time: 14:34 snw 08/03 14:01 Order name: O2 Sat Monitoring; Complete Time: 14:34 snw Administered Medications: 16:26 Drug: Lovenox (enoxaparin) 1 mg/kg Route: Sub-Q; Site: right lower abdomen; tp1 17:36 Follow up: Response: No adverse reaction tp1 18:55 Follow up: Response: No adverse reaction tp1 18:52 Drug: morphine 2 mg Route: IVP; Infused Over: 4 mins; Site: right antecubital; tp1 19:05 Follow up: Pain 0/10 Adult; Response: Marked relief of symptoms; Pain is decreased ke1 21:06 Drug: Promethazine 6.25 mg Route: IVP; Site: right antecubital; ll3 21:12 Follow up: Response: Medication administered at discharge. ke1 Disposition Summary: 08/03/22 18:32 Transfer Ordered Transfer Location: [facility] snw Reason: Higher level of care snw Condition: Stable(08/03/22 18:32) snw Problem: an acute exacerbation(08/03/22 18:32) snw Symptoms: are unchanged(08/03/22 18:32) snw Accepting Physician: Dr. France(08/03/22 21:14) ke1 Diagnosis - Chest pain, unspecified(08/03/22 18:32) snw Forms: - Medication Reconciliation Form snw - SBAR form snw Signatures: Dispatcher [employer] EDMS Ciarra Dale FNP-C LIGHTING SPECIALIST-Csnw Yolanda Torres, RN RN bm7 Luther Olivia RN RN ll3 aFiza Day RN RN tp1 Iain Martinez RN RN ke1 Corrections: (The following items were deleted from the chart) 18:08 16:02 Observation snw snw 18:08 16:02 Vicente Bashir snw snw 18:08 16:02 Telemetry/MedSurg (observation) snw snw 18:08 16:02 Stable snw snw 18:08 16:02 an acute exacerbation snw snw 18:08 16:02 have worsened snw snw 18:08 16:02 Standard snw snw 18:08 16:02 snw snw 18:08 16:02 Chest pain, unspecified 21:14 18:32 Dr. Román myles ke1
--- NOTE | 2022-08-03 16:03 | ER ---
Nurse's Notes [facility] Name: Samantha Thoams Age: 61 yrs Sex: Female : 1960 Arrival Date: 08/03/2022 Time: 13:38 Bed 6 Private MD: Diagnosis: Chest pain, unspecified Presentation: 08/03 14:11 Chief complaint: Patient's son or daughter states: She went to her doctors office and 7 they did lab work and they said that here labs were abnormal. Coronavirus screen: At this time, the client does not indicate any symptoms associated with coronavirus-19. Ebola Screen: No symptoms or risks identified at this time. Initial Sepsis Screen: Does the patient meet any 2 criteria? No. Patient's initial sepsis screen is negative. Does the patient have a suspected source of infection? No. Patient's initial sepsis screen is negative. Risk Assessment: Do you want to hurt yourself or someone else? Patient reports no desire to harm self or others. Onset of symptoms is unknown. 14:11 Method Of Arrival: Ambulatory 7 14:11 Acuity: IHSAN 2 bm7 Triage Assessment: 14:13 General: Appears in no apparent distress. comfortable, Behavior is calm, cooperative, bm7 appropriate for age. Pain: Complains of pain in chest Pain does not radiate. EENT: No deficits noted. No signs and/or symptoms were reported regarding the EENT system. Neuro: No deficits noted. Cardiovascular: Denies shortness of breath, syncope, Rhythm is sinus rhythm Chest pain is described as vague. Respiratory: No deficits noted. Denies cough, shortness of breath. GI: No deficits noted. No signs and/or symptoms were reported involving the gastrointestinal system. : No deficits noted. No signs and/or symptoms were reported regarding the genitourinary system. Derm: No deficits noted. No signs and/or symptoms reported regarding the dermatologic system. Musculoskeletal: No deficits noted. No signs and/or symptoms reported regarding the musculoskeletal system. Historical: - Allergies: 14:13 No Known Allergies; bm7 - Home Meds: 14:13 glyburide 5 mg Oral tab 2 tabs 2 times per day for Type 2 Diabetes Mellitus [Active]; bm7 metformin 850 mg Oral tab 1 tab 3 times per day [Active]; - PMHx: 14:13 Diabetes - IDDM; Hyperlipidemia; Hypertension; bm7 - PSHx: 14:13 None; bm7 - Immunization history:: Adult Immunizations up to date, Client reports receiving the 2nd dose of the Covid vaccine, Client reports receiving the 1st dose of the Covid vaccine. - Social history:: Smoking status: Patient denies any tobacco usage or history of. Screenin:56 Abuse screen: Denies threats or abuse. Denies injuries from another. Nutritional jl7 screening: No deficits noted. Tuberculosis screening: No symptoms or risk factors identified. Fall Risk IV access (20 points). Total Metcalf Fall Scale indicates No Risk (0-24 pts). Assessment: 15:12 Reassessment: Patient appears in no apparent distress at this time. Patient and/or tp1 family updated on plan of care and expected duration. Pain level reassessed. Patient is alert, oriented x 3, equal unlabored respirations, skin warm/dry/pink. daughter at bedside Patient denies pain at this time. 16:12 Reassessment: Patient appears in no apparent distress at this time. Patient and/or tp1 family updated on plan of care and expected duration. Pain level reassessed. Patient is alert, oriented x 3, equal unlabored respirations, skin warm/dry/pink. Patient denies pain at this time. 17:12 Reassessment: Patient appears in no apparent distress at this time. Patient is alert, tp1 oriented x 3, equal unlabored respirations, skin warm/dry/pink. Patient denies pain at this time. 18:12 Reassessment: Patient and/or family updated on plan of care and expected duration. Pain tp1 level reassessed. Patient is alert, oriented x 3, equal unlabored respirations, skin warm/dry/pink. Complaining of a Sharp headache rated 8/10, provider notified. 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 Critical care time stopped, patient has stabilized. 20:30 GI: Reports nausea. ke1 20:50 Reassessment: Patient states feeling better. Patient states symptoms have improved. no ke1 nausea. Vital Signs: 14:11 BP 157 / 81; Pulse 88; Resp 16; Temp 97.3(TE); Pulse Ox 100% on R/A; Weight 69.4 kg bm7 (R); Height 5 ft. 2 in. (157.48 cm); Pain 2/10; 15:59 BP 155 / 87; Pulse 92; Resp 15; Pulse Ox 100% ; ko1 16:29 BP 163 / 99; Pulse 93; Resp 19; Pulse Ox 97% on R/A; tp1 17:30 BP 156 / 93; Pulse 83; Resp 19; Pulse Ox 98% on R/A; tp1 18:13 BP 147 / 88; Pulse 84; Resp 19; Pulse Ox 99% on R/A; tp1 19:05 Pain 0/10; ke1 20:12 BP 139 / 88; Pulse 81; Resp 18; Pulse Ox 97% ; ll3 21:13 BP 132 / 80; Pulse 80; Resp 17; Pulse Ox 100% on R/A; Pain 0/10; ke1 14:11 Body Mass Index 27.98 (69.40 kg, 157.48 cm) bm7 ED Course: 13:38 Patient arrived in ED. rg4 14:01 Ciarra Dale FNP-C is PHCP. snw 14:01 Dorian Fields MD is Attending Physician. snw 14:13 Triage completed. bm7 14:13 Arm band placed on right wrist. EKG completed in triage. Results shown to MD. bm7 14:35 Initial lab(s) drawn, by me, sent to lab. Inserted saline lock: 20 gauge in right jl7 antecubital area, using aseptic technique. Blood collected. 14:35 EKG done. jl7 14:50 COVID swab sent to lab. jl7 15:22 CT Chest For PE Angio In Process Unspecified. EDMS 15:41 Faiza Day, RN is Primary Nurse. tp1 15:53 XRAY Chest (1 view) In Process Unspecified. EDMS 16:02 Vicente Bashir is Hospitalizing Provider. snw 21:11 No provider procedures requiring assistance completed. Patient transferred, IV remains ke1 in place. 21:12 Bed in low position. Call light in reach. ke1 Administered Medications: 16:26 Drug: Lovenox (enoxaparin) 1 mg/kg Route: Sub-Q; Site: right lower abdomen; tp1 17:36 Follow up: Response: No adverse reaction tp1 18:55 Follow up: Response: No adverse reaction tp1 18:52 Drug: morphine 2 mg Route: IVP; Infused Over: 4 mins; Site: right antecubital; tp1 19:05 Follow up: Pain 0/10 Adult; Response: Marked relief of symptoms; Pain is decreased ke1 21:06 Drug: Promethazine 6.25 mg Route: IVP; Site: right antecubital; ll3 21:12 Follow up: Response: Medication administered at discharge. ke1 Medication: 14:56 VIS not applicable for this client. jl7 Outcome: 16:02 Decision to Hospitalize by Provider. snw 18:32 ER care complete, transfer ordered by MD. sn 21:11 Transferred to [facility]. ke1 21:11 Condition: good 21:11 Instructed on the need for transfer. 21:14 Patient left the ED. ke1 Signatures: Dispatcher [employer] EDMS Ciarra Dale, MANAGER CATEGORY-C MANAGER CATEGORY-Csnw Shaw[place] Barnett rg4 Nandini Wells RN RN jl7 Yolanda Torres, RN RN bm7 Luther Olivia RN RN ll3 Faiza Day RN RN tp1 Iain Martinez RN RN ke1 Sparkle Martin RN RN ko1
[2022-08-03] MEDS ORDERED: ENOXAPARIN 60 MG/0.6 ML SQ ONE (16:30)
[2022-08-03] MEDS ORDERED: ENOXAPARIN 80 MG/0.8 ML SQ ONE (16:32)
--- NOTE | 2022-08-03 16:32 | RAD REPORT ---
EXAM DESCRIPTION: [place] Single View08/03/2022 3:51 pm CLINICAL HISTORY: Chest pain COMPARISON: 2016 FINDINGS: The lungs appear clear of acute infiltrate. The heart is mildly enlarged IMPRESSION: No acute abnormalities displayed
[2022-08-03] MEDS ORDERED: MORPHINE 2 MG/ML SYR ONE (19:00)
[2022-08-03] MEDS ORDERED: PROMETHAZINE INJ 25 MG/ML AMP ONE (21:12)
[2022-08-04 00:49] VITALS: TEMP 97.3
[2022-08-04 01:30] VITALS: BP 132/80; O2SAT 100
--- NOTE | 2022-08-06 15:11 | EKG ---
Test Date: 2022-08-03 Test Time: 14:06:33 Yard Brakeman: SUBHASH MEASUREMENT RESULTS: Intervals: Rate: 90 ME: 126 QRSD: 84 QT: 378 QTc: 462 [place]: P: 57 ME: 126 QRS: 71 T: 138 INTERPRETIVE STATEMENTS: Normal sinus rhythm Anterior infarct, age undetermined T wave abnormality, consider lateral ischemia Abnormal ECG Compared to ECG 06/07/2019 23:34:18 Myocardial infarct finding now present T-wave abnormality now present Possible ischemia now present Prolonged QT interval no longer present Electronically Signed On 08-06-22 15:09:05 CDT by Moe Sherman
== END 2022-08-03 21:14 | disposition short-term general hospital (02) ==
LOC: ER 13:37
DX: R07.9 Chest pain, unspecified (principal); R51.9 Headache, unspecified; I10 Essential (primary) hypertension; E11.9 Type 2 diabetes mellitus without complications; Z20.822 Contact with and (suspected) exposure to COVID-19
CPT/HCPCS: 36415; 71045; 71275; 80048; 84484; 85025; 85379; 87811; 93005; 96372; 96374; 96375; 99285; J1650; J2270; J2550; Q9967